=== PATIENT | female | born 1955 | race Caucasian/White ===

== ENCOUNTER 2020-02-21 06:45 | Emergency (ER) | payer BC, SELFPAY ==
[2020-02-21 07:02] VITALS: BP 175/85; PULSE 74; RESP 19; TEMP 37; O2SAT 95; BMI 31.7
--- NOTE | 2020-02-21 08:20 | ED_ITS ---
HPI - General Adult General Chief complaint: Upper Respiratory Symptoms Stated complaint: Fish bone stuck in right upper quad/cough x14 days Time Seen by Provider: 02/21/20 06:50 Source: patient Mode of arrival: Ambulatory Limitations: no limitations History of Present Illness HPI narrative: Patient complains of discomfort in the mid chest/throat due to swallowing a fish bone 2 weeks ago. She felt ago down in try clearing with eating bread. No dyspnea and no drooling. Past 3 nights has noticed high- pitched cough and pain with lying supine. No hemoptysis. No hematemesis. No bloody stools. No trouble breathing otherwise. Tolerating eating and drinking. She does have established ENT that she saw recently for sinus procedures. However fishbone incident occurred after office visit. Blood pressure noted, she did take her blood pressure medication today. She feels anxious Related Data Home Medications Medication Instructions Recorded Confirmed ibuprofen 200 mg PO TID #0 04/26/11 Allergies Allergy/AdvReac Type Severity Reaction Status Date / Time amoxicillin AdvReac Insomnia Verified 02/21/20 07:02 Review of Systems Review of Systems Narrative: GENERAL: Denies chills, fatigue, malaise, fever, sweats. HEENT: Denies sinus pain, ear pain, sore throat, complains of difficulty swallowing, denies dizziness. RESPIRATORY: Denies dyspnea, cough, wheezing, hemoptysis, sputum. CARDIOVASCULAR: Denies chest pain, palpitations, orthopnea, edema, GASTROINTESTINAL: Denies nausea, vomiting, abdominal pain, diarrhea, constipation, melena. : Denies dysuria, frequency, incontinence, hematuria, urinary retention. MUSCULOSKELETAL: denies weakness, joint pain, or bony pain SKIN: Denies rash, skin lesions, or other NEUROLOGIC: Denies weakness, headache, numbness, change in speech, confusion, seizures, incoordination. PSYCHIATRIC: No concerning psychosocial issues. ROS Unobtainable: All systems reviewed & are unremarkable except as noted in HPI and below Patient History Social History Smoking Status: Never smoker Smoking Status: Never smoker alcohol intake frequency: a few times a week Substance Use Type: does not use Exam Narrative Exam Narrative: GENERAL: patient appears stated age. Well-nourished, well- developed patient, in no distress, not toxic HEAD: Atraumatic. Normocephalic. EYES: Pupils equal round and reactive. Extraocular motions intact. No scleral icterus. No injection or drainage. ENT: Nose without bleeding, purulent drainage. Throat without erythema, tonsillar hypertrophy or exudate. Airway patent. NECK: Trachea midline. Non tender CARDIOVASCULAR: Regular rate and rhythm without murmurs, gallops, or rubs. RESPIRATORY: Clear to auscultation. Breath sounds equal bilaterally. No wheezes, rales, or rhonchi. No stridor, speaking full sentences. GASTROINTESTINAL: Abdomen soft, non-tender, nondistended. EXTREMITIES: No edema or joint tenderness. BACK: Nontender without deformity or crepitance. No flank tenderness. NEURO: AOx3. SKIN: No rash or erythema of visible areas PSYCH: Not anxious, is cooperative Initial Vital Signs Initial Vital Signs: Vital Signs Temperature 98.6 F 02/21/20 07:02 Pulse Rate 74 02/21/20 07:02 Respiratory Rate 19 02/21/20 07:02 Blood Pressure 175/85 H 02/21/20 07:02 Pulse Oximetry 95 02/21/20 07:02 Course Orders Ordered: ED Orders 02/21/20 08:22 CT chest wo con Stat Reevaluation(s) Reevaluation #1: Unchanged condition. No acute concerns at this time. Spoke with patient results of CAT scan. She agrees with treatment plan for follow-up with her ENT physician as well as I will give her referral to General surgery and Pulmonary for possible bronchoscopy or EGD. Time: 10:06 Reevaluation #2: Blood pressure improved 159/84. No intervention. Not toxic at discharge. Airway patent and intact. No distress Time: 11:10 Consultations Consultation #1: Spoke with general surgery Dr. Duenas, patient can follow-up in the office for scheduled for EGD Time: 10:06 Consultation #2: Spoke with [facility], Dr. Meehan, will see pt tomorrow at 3 pm his phone number is [phone] Vital Signs Vital signs: Vital Signs - 8 hr 02/21/20 10:20 Pulse Rate 80 Respiratory Rate 16 Blood Pressure 159/84 H Pulse Oximetry 99 Medical Decision Making Imaging Data CT scan - chest: Radiologist's Impression: [address] [address] [address] Scan Report Signed Patient: Cecy Carranza GMR#: [id number] : 5Acct:[id number] Age/Sex: 64 / FDate of Service: 02/21/20 Loc: ED Accession Number: [id number] Procedure: CT chest wo con Ordering Provider: Isiah Edward MD PROCEDURE: CT CHEST WO CON INDICATIONS: Foreign body trachea versus esophageal TECHNIQUE: Noncontrast 5 mm thick sections acquired from the pulmonary apices to the posterior costophrenic angles. 1 mm lung window, 5 mm thick coronal and sagittal and 7 mm axial MIP reformats were then acquired. For radiation dose reduction, the following was used: automated exposure control, adjustment of mA and/or kV according to patient size. COMPARISON: None. FINDINGS: Image quality: Excellent. Lungs and pleura: No acute air space opacities. No pleural effusions or pneumothorax. Central and peripheral airways are patent and normal in caliber. Mediastinum: Heart size is normal. No pericardial effusion. No mediastinal adenopathy by size criteria. Thoracic aorta and central pulmonary arteries are normal in size. Esophagus is normal in caliber. No hiatal hernia. Bones and chest wall: No suspicious bony lesions. No vertebral body compression fractures. No axillary or supraclavicular adenopathy by size criteria. Thyroid gland is unremarkable . Abdomen: Visualized upper abdominal solid organs and bowel loops appear normal in the absence of contrast. IMPRESSION: 1. No visualized foreign body. Lungs are clear. Dictated by: Hafsa Carrasquillo M.D. on 02/21/2020 at 8:38 Approved by: Hafsa Carrasquillo M.D. on 02/21/2020 at 8:41 MDM Narrative Medical decision making narrative: No labs indicated at this time. Trying CT scan imaging for locating foreign body. As well as assessing airway and esophagus. Appropriate for follow-up with either pulmonary/ENT/GI/general surgery for endoscopy. Patient airway patent intact Discharge Plan Departure Patient Disposition: Home Clinical Impression: Foreign body Discharge Date/Time: 02/21/20 11:18 Instructions: DI for Foreign Body, Swallowed-Adult Activity Restrictions/Additional Instructions: Call your ENT surgeon today for office recheck and possible scheduling for scoping of the throat. Call Dr. Duenas office today for possible endoscopy scoping of your esophagus and stomach. Call provided pulmonary office today to schedule for office recheck and possible scheduling of bronchoscopy of the trachea. Return if worse if any questions or concerns or trouble swallowing or breathing. Pulmonary physician Dr. Meehan, will see tomorrow at 3:00 p.m.. Phone number is [phone]. Call today to confirm office time. You may need referral from family physician Prescriptions: No Action ibuprofen 200 MG tablet 200 mg PO TID Qty: 0 RF: 0 Referrals: Wilfredo Monroe MD [Primary Care Provider] - Ariel Duenas MD [Physician] - Adis Meehan [Non-Staff] -
[2020-02-21 10:20] VITALS: BP 159/84; PULSE 80; RESP 16; O2SAT 99
== END 2020-02-21 11:18 | disposition home or self-care (01) ==
PROVIDERS: Emergency Provider Emergency Medicine; PCP Family Medicine
DX: T18.9XXA Foreign body of alimentary tract, part unspecified, initial encounter (principal)
CPT/HCPCS: 71250; 99283; 99284

== ENCOUNTER 2022-10-30 08:03 | Emergency (ER) | payer MEDICARE, SELFPAY ==
--- NOTE | 2022-10-30 08:17 | DI.RAD.S_ITS ---
PROCEDURE: XR CHEST 2V INDICATIONS: cough, SOB TECHNIQUE: 2 views of the chest were acquired. COMPARISON: [facility], CT, CT CHEST WO CON, 02/21/2020, 8:08. FINDINGS: Surgical changes and devices: None. Lungs and pleura: Lungs are clear. No pleural effusions or pneumothorax. Mediastinum: There is some bulging of the right mediastinal contour which correlates with a mildly aneurysmal ascending aorta on the previous chest CT. On the previous chest CT, the aorta measured 4.1 cm . Heart size is normal. Bones and chest wall: No suspicious bony abnormalities. Soft tissues appear unremarkable. IMPRESSION: 1. There is a mild ascending aortic aneurysm on the previous study. It is felt to be the etiology of mild bulging of the right mediastinal contour. 2. No evidence acute pulmonary process. Dictated by: Jose J Patricia M.D. on 10/30/2022 at 8:47 Approved by: Jose J Patricia M.D. on 10/30/2022 at 8:49
[2022-10-30 08:18] VITALS: BP 190/93; PULSE 89; RESP 26; TEMP 37; O2SAT 98; BMI 33.5
--- NOTE | 2022-10-30 08:18 | ED.GENADULT ---
HPI - General Adult General Chief complaint: Shortness of Breath/Dyspnea Stated complaint: coughing,choking and gagging, hard to breath Time Seen by Provider: 10/30/22 08:17 History of Present Illness HPI narrative: 67-year-old female nonsmoker with history of asthma and chronic sinus issues presents with a chief complaint of coughing and wheezing for the past 24 hours. She denies any runny nose or sore throat. She is had no fever or chills. She denies nausea, vomiting or diarrhea. She denies recent travel, history of clot or cancer. She states that she had been trying to use her albuterol inhaler at home but it does not seem to be working, she does not have a chamber with it. Related Data Home Medications Medication Instructions Recorded Confirmed albuterol sulfate 90 mcg/actuation inhalation 10/30/22 aerosol inhaler Previous Rx's Medication Instructions Recorded benzonatate 200 mg capsule 200 mg PO BID PRN cough #20 caps 10/30/22 prednisone 20 mg tablet 20 mg PO DAILY #5 tabs 10/30/22 Allergies Allergy/AdvReac Type Severity Reaction Status Date / Time amoxicillin AdvReac Insomnia Verified 10/30/22 08:21 Review of Systems Review of Systems Narrative: GENERAL: See HPI HEENT: See HPI RESPIRATORY: See HPI CARDIOVASCULAR: Denies chest pain, palpitations, orthopnea, edema, GASTROINTESTINAL: Denies nausea, vomiting, abdominal pain, diarrhea, constipation, melena. : Denies dysuria, frequency, incontinence, hematuria, urinary retention. MUSCULOSKELETAL: denies weakness, joint pain, or bony pain SKIN: Denies rash, skin lesions, or other NEUROLOGIC: Denies weakness, headache, numbness, change in speech, confusion, seizures, incoordination. PSYCHIATRIC: No concerning psychosocial issues. 12 point review of systems is negative except for those stated above Patient History Social History Smoking Status: Never smoker Smoking Status: Never smoker alcohol intake frequency: a few times a week Substance Use Type: does not use Exam Narrative Exam Narrative: GENERAL: [67] year old patient appears stated age. Well-developed patient, in mild distress. Anxious, frequent dry hacking cough HEAD: Atraumatic. Normocephalic. EYES: Pupils equal round and reactive. Extraocular motions intact. No scleral icterus. No injection or drainage. ENT: Nose without bleeding, purulent drainage. Throat without erythema, tonsillar hypertrophy or exudate. Airway patent. Minimal postnasal drip NECK: Trachea midline. Non tender CARDIOVASCULAR: Regular rate and rhythm without murmurs, gallops, or rubs. RESPIRATORY: No significant increased work of breathing or use of accessory muscles, no hypoxemia, expiratory wheeze noted in all causey GASTROINTESTINAL: Abdomen soft, non-tender, nondistended. EXTREMITIES: No edema or joint tenderness. BACK: Nontender without deformity or crepitance. No flank tenderness. NEURO: AOx3. SKIN: No rash or erythema of visible areas Initial Vital Signs Initial Vital Signs: Vital Signs Temperature 98.6 F 10/30/22 08:18 Pulse Rate 89 10/30/22 08:18 Respiratory Rate 26 H 10/30/22 08:18 Blood Pressure 190/93 H 10/30/22 08:18 Pulse Oximetry 98 10/30/22 08:18 Oxygen Delivery Method Room Air 10/30/22 08:18 Course Orders Ordered: ED Orders 10/30/22 08:17 Chest [XR chest 2V] Stat 10/30/22 08:24 Covid-19 + FLU A/B + RSV - PCR Stat Discontinued Medications Albuterol/Ipratropium (Albuterol/Ipratropium 3 Ml Ampul) 3 ml INH NOW ONE Stop: 10/30/22 08:18 Last Admin: 10/30/22 08:22 Dose: 3 ml Documented By: ELAN Albuterol/Ipratropium (Albuterol/Ipratropium 3 Ml Ampul) 3 ml INH NOW ONE Stop: 10/30/22 08:42 Last Admin: 10/30/22 08:44 Dose: 3 ml Documented By: ELAN Vital Signs Vital signs: Vital Signs - 8 hr 10/30/22 08:22 10/30/22 08:18 10/30/22 08:44 Temperature 98.6 F Pulse Rate 78 89 82 Respiratory Rate 18 26 H 18 Blood Pressure 190/93 H Pulse Oximetry 98 98 99 Oxygen Delivery Method Room Air Room Air Room Air Oxygen Flow Rate 0 0 Fraction of Inspired Oxygen 21 21 Medical Decision Making Lab Data Labs: Lab Results 10/30/22 Range/Units 08:24 SARS-CoV-2 (PCR) Negative (Negative) Influenza A (RT-PCR) Flu a negative (NEGATIVE) Influenza B (RT-PCR) Flu b negative (NEGATIVE) RSV (PCR) Negative (Negative) MDM Narrative Medical decision making narrative: [89] year old patient presents with wheezing and cough Multiple etiologies for patient's symptoms considered including, but not limited to: [Asthma exacerbation versus viral upper respiratory infection versus pneumonia versus other] Prior Charts reviewed in our EMR Primary Historian: patient Labs reviewed and interpreted by myself: Imaging reviewed: Chest x-ray notes Treatments: Albuterol with significant improvement Patient's symptoms improved over duration of stay with above-stated therapies. Findings and discharge diagnosis discussed with patient/family followed by verbalization of understanding Return precautions discussed with patient/family whom verbalize understanding of diagnosis and plan Discharge Plan Departure Patient Disposition: Home Clinical Impression: Asthma Instructions: Asthma -- Adult Activity Restrictions/Additional Instructions: *You have been diagnosed with [asthma exacerbation] *What to do: *Please continue to take your regular medications as directed. As we discussed be sure to use the spacer that was given to you by respiratory therapy as it will help the medications work better. Additionally the use of [id number] antihistamines such as Zyrtec or Jolanta will help dry some of the postnasal drainage that is likely contributing to your symptoms [x] New medication prescriptions sent to your pharmacy: [ [facility] in [place]] [ ] New medication written as a paper prescription [ ] No new medications given *Please follow up with your primary care provider in 2-3 days, call for an appointment. Let them know you were seen in the Emergency Department and that we ask that you be seen in follow up. We will electronically transmit a record of today's note if your PCP is in our system *If you do not have a primary care provider please contact the [facility] Resource line at [phone]. They will ask some questions about your medical history and help get you set up with a doctor in the community. *Return to Emergency Department if you should have any new, worsening or concerning symptoms, such as [fever greater than 101 F, shaking chills, worsening pain, persistent vomiting or other bothersome symptoms] Prescriptions: New benzonatate 200 mg capsule 200 mg PO BID PRN (Reason: cough) Qty: 20 0RF prednisone 20 mg tablet 20 mg PO DAILY Qty: 5 0RF Rx Instructions: administer with food or milk No Action albuterol sulfate 90 mcg/actuation HFA aerosol inhaler INHALATION Referrals: Kelly Best PA-C [Primary Care Provider] - Stand Alone Forms: Patient Portal/API
[2022-10-30 08:22] VITALS: PULSE 78; RESP 18; O2SAT 98
[2022-10-30] MEDS: ALBUTEROL/IPRATROPIUM 3 ML AMPUL INH ×2 (08:22→08:44)
--- NOTE | 2022-10-30 08:34 | PC.NURSE ---
Patient reports significant improvement after nebulized breathing treatment. She has some mild expiratory wheezing remaining however it has decreased. Spacer training in progress with respiratory therapy.
[2022-10-30 08:44] VITALS: PULSE 82; RESP 18; O2SAT 99
[2022-10-30 09:15] LABS: COVID-19 CEPHEID 4-PLEX PCR Negative (Negative); Influenza A - CEPHEID Flu A NEGATIVE (NEGATIVE); Influenza B - CEPHEID Flu B NEGATIVE (NEGATIVE); Respiratory Syncytial Virus Negative (Negative)
[2022-10-30 09:48] VITALS: PULSE 87; RESP 16; O2SAT 99
--- NOTE | 2022-10-30 09:48 | PC.NURSE ---
Patient accidentally left without discharge instructions. Is coming back to get them.
== END 2022-10-30 09:49 | disposition home or self-care (01) ==
PROVIDERS: Emergency Provider Emergency Medicine; PCP Physician Assistant
DX: J45.909 Unspecified asthma, uncomplicated (principal); R06.02 Shortness of breath; Z20.822 Contact with and (suspected) exposure to COVID-19
CPT/HCPCS: 0241U; 71046; 94640; 99283

== ENCOUNTER 2022-11-28 09:08 | Emergency (ER) | payer MEDICARE, SELFPAY ==
[2022-11-28] VITALS (20 sets, daily range): BP systolic 116–181; BP diastolic 67–86; PULSE 68–105; RESP 13–23; TEMP 36.8; O2SAT 93–100; BMI 33.5
--- NOTE | 2022-11-28 09:18 | DI.RAD.S_ITS ---
PROCEDURE: XR CHEST 1V INDICATIONS: Shortness of breath TECHNIQUE: One view of the chest was acquired. COMPARISON: [facility], , XR CHEST 2V, 10/30/2022, 8:19. FINDINGS: Surgical changes and devices: Overlying monitoring wires. Lungs and pleura: Lungs are clear. No pleural effusions or pneumothorax. Mediastinum: The ascending aorta is tortuous and mildly ectatic as seen previously. There is subtle increase in upper mediastinal soft tissue, though this may be largely in part due to AP rather than PA projection. The heart size is normal. No central vascular congestion. Bones and chest wall: No suspicious bony lesions. Overlying soft tissues appear unremarkable. IMPRESSION: 1. Subtle increase in degree of mediastinal soft tissue is most likely secondary to change in technique. Consider a PA chest for direct comparison to the prior study. If this finding persists, chest CT with contrast may be useful. 2. Otherwise, no acute cardiopulmonary disease. Dictated by: Cele Carvalho M.D. on 11/28/2022 at 8:55 Approved by: Cele Carvalho M.D. on 11/28/2022 at 8:58
[2022-11-28 10:04] LABS: Add Manual Diff / Slide Review NO; Basophils Absolute Auto 0 /uL (0-100); Basophils Percent Auto 0.6 % (0-2); Eosinophils Absolute Auto 700 /uL (0-450); Eosinophils Percent Auto 9.9 % (2-4); Hematocrit 39.3 % (36-46); Hemoglobin 13.6 g/dL (12.0-16.0); Lymphocytes Absolute Auto 1600 /uL (1100-4500); Lymphocytes Percent Auto 23.6 % (25-40); Mean Corpuscular HGB Conc 34.5 % (30-36); Mean Corpuscular Hemoglobin 29.6 PG (26-34); Mean Corpuscular Volume 85.6 fL (80-100); Monocytes Absolute Auto 500 /uL (0-900); Monocytes Percent Auto 6.8 % (3-14); Neutrophils Absolute Auto 4100 /uL (1500-7000); Neutrophils Percent Auto 59.1 % (50-75); Platelet Count 243 X10^3/uL (150-400); Red Blood Cell Count 4.59 X10^6/uL (4.0-5.2); Red Cell Distribution Width 13.7 % (11.6-14.8)
[2022-11-28 10:12] LABS: Prothrombin Time 11.3 SECONDS (10.1-12.7)
--- NOTE | 2022-11-28 10:14 | ED.CHESTPAIN ---
HPI - Chest Pain General Chief Complaint: Shortness of Breath/Dyspnea Stated Complaint: hard time breathing and swallowing Time Seen by Provider: 11/28/22 09:14 Source: patient Mode of arrival: Ambulatory Limitations: no limitations History of Present Illness HPI narrative: 67-year-old female nonsmoker with history of seasonal allergies and asthma presents for evaluation of hard time breathing in the morning for each of the past few days. She has some chest pressure that seems to be associated with taking deep breath but denies any exertional component. She denies any dizziness or lightheadedness. She denies radiation of her discomfort. She denies exercise intolerance. She denies recent travel, history of blood clot or lower extremity pain, swelling or redness. She is had some runny nose, nasal congestion and had been told to use breathing treatments and allergy medications which has not been helpful Related Data Home Medications Medication Instructions Recorded Confirmed albuterol sulfate 90 mcg/actuation inhalation 10/30/22 aerosol inhaler Previous Rx's Medication Instructions Recorded benzonatate 200 mg capsule 200 mg PO BID PRN cough #20 caps 10/30/22 prednisone 20 mg tablet 20 mg PO DAILY #5 tabs 10/30/22 doxycycline hyclate 100 mg tablet 100 mg PO BID #20 tabs 11/28/22 prednisone 10 mg tablet See Rx Instructions .Route 11/28/22 .COMPLEX #30 tabs Allergies Allergy/AdvReac Type Severity Reaction Status Date / Time amoxicillin AdvReac Insomnia Verified 11/28/22 09:18 Review of Systems Review of Systems Narrative: GENERAL: Denies chills, fatigue, malaise, fever, sweats. HEENT: Denies sinus pain, ear pain, sore throat, difficulty swallowing, dizziness. RESPIRATORY: See HPI CARDIOVASCULAR: See HPI GASTROINTESTINAL: Denies nausea, vomiting, abdominal pain, diarrhea, constipation, melena. : Denies dysuria, frequency, incontinence, hematuria, urinary retention. MUSCULOSKELETAL: denies weakness, joint pain, or bony pain SKIN: Denies rash, skin lesions, or other NEUROLOGIC: Denies weakness, headache, numbness, change in speech, confusion, seizures, incoordination. PSYCHIATRIC: No concerning psychosocial issues. 12 point review of systems is negative except for those stated above Patient History Social History Smoking Status: Never smoker Smoking Status: Never smoker alcohol intake frequency: 0-2 drinks per day Substance Use Type: does not use Exam Narrative Exam Narrative: GENERAL: [67] year old patient appears stated age. Well-developed patient, in mild distress. Perhaps a bit anxious HEAD: Atraumatic. Normocephalic. EYES: Pupils equal round and reactive. Extraocular motions intact. No scleral icterus. No injection or drainage. ENT: Nose without bleeding, purulent drainage. Throat without erythema, tonsillar hypertrophy or exudate. Airway patent. NECK: Trachea midline. Non tender CARDIOVASCULAR: Regular rate and rhythm without murmurs, gallops, or rubs. RESPIRATORY: Clear to auscultation. Breath sounds equal bilaterally. No wheezes, rales, or rhonchi. GASTROINTESTINAL: Abdomen soft, non-tender, nondistended. EXTREMITIES: No edema or joint tenderness. BACK: Nontender without deformity or crepitance. No flank tenderness. NEURO: AOx3. SKIN: No rash or erythema of visible areas Initial Vital Signs Initial Vital Signs: Vital Signs Temperature 98.3 F 11/28/22 09:09 Pulse Rate 82 11/28/22 09:09 Respiratory Rate 17 11/28/22 09:09 Blood Pressure 181/86 H 11/28/22 09:09 Pulse Oximetry 98 11/28/22 09:09 Oxygen Delivery Method Room Air 11/28/22 09:09 Course Orders Ordered: Discontinued Medications Diphtheria/Tetanus/Acell Pertussis (Tet,Diph,Pertuss(Acell),Vac/Pf 0.5 Ml Syringe) 0.5 ml IM .ONCE ONE Stop: 11/28/22 12:44 Last Admin: 11/28/22 12:50 Dose: 0.5 ml Documented By: CHARMAINE Vital Signs Vital signs: Vital Signs - 8 hr 11/28/22 09:09 11/28/22 09:14 11/28/22 09:15 Temperature 98.3 F Pulse Rate 82 Respiratory Rate 17 Blood Pressure 181/86 H 181/86 H Pulse Oximetry 98 93 Oxygen Delivery Method Room Air 11/28/22 09:15 11/28/22 09:30 11/28/22 09:30 Temperature Pulse Rate 83 75 Respiratory Rate 20 Blood Pressure 173/77 H Pulse Oximetry 98 98 Oxygen Delivery Method 11/28/22 09:56 11/28/22 09:56 11/28/22 10:00 Temperature Pulse Rate 70 Respiratory Rate 14 Blood Pressure 146/70 H 138/67 Pulse Oximetry 99 Oxygen Delivery Method 11/28/22 10:00 11/28/22 10:15 11/28/22 10:15 Temperature Pulse Rate 69 68 Respiratory Rate 13 15 Blood Pressure 141/72 H Pulse Oximetry 100 100 Oxygen Delivery Method MDM - Chest Pain Lab Data 11/28/22 09:57 11/28/22 09:57 Labs: Lab Results 11/28/22 11/28/22 11/28/22 Range/Units 09:57 09:57 09:57 WBC 7.0 (4.5-11.0) X10^3/uL RBC 4.59 (4.0-5.2) X10^6/uL Hgb 13.6 (12.0-16.0) g/dL Hct 39.3 (36-46) % MCV 85.6 (80-100) fL MCH 29.6 (26-34) PG MCHC 34.5 (30-36) % RDW 13.7 (11.6-14.8) % Plt Count 243 (150-400) X10^3/uL Neut % (Auto) 59.1 (50-75) % Lymph % (Auto) 23.6 L (25-40) % Burke % (Auto) 6.8 (3-14) % Eos % (Auto) 9.9 H (2-4) % Baso % (Auto) 0.6 (0-2) % Neut # (Auto) 4100 (1890-8872) /uL Lymph # (Auto) 1600 (6901-2318) /uL Burke # (Auto) 500 (0-900) /uL Eos # (Auto) 700 H (0-450) /uL Baso # (Auto) 0 (0-100) /uL PT 11.3 (10.1-12.7) SECONDS INR 1.0 (0.9-1.3) D-Dimer (<500) ng/ml Sodium 138 (137-145) mmol/L Potassium 4.3 (3.4-5.1) mmol/L Chloride 106 (98-107) mmol/L Carbon Dioxide 25 (22-32) mmol/L BUN 12 (7-17) mg/dL Creatinine 0.80 (0.52-1.04) mg/dL Estimated GFR > 60 (>60) mL/min BUN/Creatinine Ratio 15.0 (6-22) Glucose 159 H (80-110) mg/dL Lactate (0.7-2.1) mmol/L Calcium 9.2 (8.4-10.2) mg/dL Total Bilirubin 0.7 (0.2-1.3) mg/dL AST 19 (14-36) IU/L ALT 19 (<35) IU/L Alkaline Phosphatase 80 (38-126) U/L Troponin I < 0.012 (0.01-0.034) ng/mL NT-Pro-B Natriuret Pep 49 (<125) pg/mL Total Protein 7.0 (6.3-8.2) g/dL Albumin 4.0 (3.5-5.0) g/dL Globulin 3.0 (1.7-4.1) g/dL Albumin/Globulin Ratio 1.3 (1.0-2.8) Procalcitonin (<0.5) ng/mL Chlamy pneumoniae PCR (Not Detect) Adenovirus (PCR) (Not Detect) B. pertussis DNA (PCR) (Not Detecte) B.parapertussis DNA PCR (Not Detecte) Coronavirus OC43 (PCR) (Not Detect) Coronavirus HKU1 (PCR) (Not Detect) Coronavirus 229E (PCR) (Not Detect) SARS-CoV-2 (PCR) (Not Detecte) Coronavirus NL63 (PCR) (Not Detect) Human Metapneumovir PCR (Not Detect) Influenza Type A (PCR) (Not Detect) Influenza Type B (PCR) (Not Detect) M. pneumoniae (PCR) (Not Detect) Parainfluenza 1 (PCR) (Not Detect) Parainfluenza 2 (PCR) (Not Detect) Parainfluenza 3 (PCR) (Not Detect) Parainfluenza 4 (PCR) (Not Detect) RSV (PCR) (Not Detect) Entero/Rhino (PCR) (Not Detect) 11/28/22 11/28/22 11/28/22 Range/Units 09:57 09:57 09:57 WBC (4.5-11.0) X10^3/uL RBC (4.0-5.2) X10^6/uL Hgb (12.0-16.0) g/dL Hct (36-46) % MCV (80-100) fL MCH (26-34) PG MCHC (30-36) % RDW (11.6-14.8) % Plt Count (150-400) X10^3/uL Neut % (Auto) (50-75) % Lymph % (Auto) (25-40) % Burke % (Auto) (3-14) % Eos % (Auto) (2-4) % Baso % (Auto) (0-2) % Neut # (Auto) (0030-1877) /uL Lymph # (Auto) (9832-2747) /uL Burke # (Auto) (0-900) /uL Eos # (Auto) (0-450) /uL Baso # (Auto) (0-100) /uL PT (10.1-12.7) SECONDS INR (0.9-1.3) D-Dimer 413 (<500) ng/ml Sodium (137-145) mmol/L Potassium (3.4-5.1) mmol/L Chloride (98-107) mmol/L Carbon Dioxide (22-32) mmol/L BUN (7-17) mg/dL Creatinine (0.52-1.04) mg/dL Estimated GFR (>60) mL/min BUN/Creatinine Ratio (6-22) Glucose (80-110) mg/dL Lactate 1.8 (0.7-2.1) mmol/L Calcium (8.4-10.2) mg/dL Total Bilirubin (0.2-1.3) mg/dL AST (14-36) IU/L ALT (<35) IU/L Alkaline Phosphatase (38-126) U/L Troponin I (0.01-0.034) ng/mL NT-Pro-B Natriuret Pep (<125) pg/mL Total Protein (6.3-8.2) g/dL Albumin (3.5-5.0) g/dL Globulin (1.7-4.1) g/dL Albumin/Globulin Ratio (1.0-2.8) Procalcitonin 0.04 (<0.5) ng/mL Chlamy pneumoniae PCR (Not Detect) Adenovirus (PCR) (Not Detect) B. pertussis DNA (PCR) (Not Detecte) B.parapertussis DNA PCR (Not Detecte) Coronavirus OC43 (PCR) (Not Detect) Coronavirus HKU1 (PCR) (Not Detect) Coronavirus 229E (PCR) (Not Detect) SARS-CoV-2 (PCR) (Not Detecte) Coronavirus NL63 (PCR) (Not Detect) Human Metapneumovir PCR (Not Detect) Influenza Type A (PCR) (Not Detect) Influenza Type B (PCR) (Not Detect) M. pneumoniae (PCR) (Not Detect) Parainfluenza 1 (PCR) (Not Detect) Parainfluenza 2 (PCR) (Not Detect) Parainfluenza 3 (PCR) (Not Detect) Parainfluenza 4 (PCR) (Not Detect) RSV (PCR) (Not Detect) Entero/Rhino (PCR) (Not Detect) 11/28/22 Range/Units 13:00 WBC (4.5-11.0) X10^3/uL RBC (4.0-5.2) X10^6/uL Hgb (12.0-16.0) g/dL Hct (36-46) % MCV (80-100) fL MCH (26-34) PG MCHC (30-36) % RDW (11.6-14.8) % Plt Count (150-400) X10^3/uL Neut % (Auto) (50-75) % Lymph % (Auto) (25-40) % Burke % (Auto) (3-14) % Eos % (Auto) (2-4) % Baso % (Auto) (0-2) % Neut # (Auto) (3702-8421) /uL Lymph # (Auto) (3379-4567) /uL Burke # (Auto) (0-900) /uL Eos # (Auto) (0-450) /uL Baso # (Auto) (0-100) /uL PT (10.1-12.7) SECONDS INR (0.9-1.3) D-Dimer (<500) ng/ml Sodium (137-145) mmol/L Potassium (3.4-5.1) mmol/L Chloride (98-107) mmol/L Carbon Dioxide (22-32) mmol/L BUN (7-17) mg/dL Creatinine (0.52-1.04) mg/dL Estimated GFR (>60) mL/min BUN/Creatinine Ratio (6-22) Glucose (80-110) mg/dL Lactate (0.7-2.1) mmol/L Calcium (8.4-10.2) mg/dL Total Bilirubin (0.2-1.3) mg/dL AST (14-36) IU/L ALT (<35) IU/L Alkaline Phosphatase (38-126) U/L Troponin I (0.01-0.034) ng/mL NT-Pro-B Natriuret Pep (<125) pg/mL Total Protein (6.3-8.2) g/dL Albumin (3.5-5.0) g/dL Globulin (1.7-4.1) g/dL Albumin/Globulin Ratio (1.0-2.8) Procalcitonin (<0.5) ng/mL Chlamy pneumoniae PCR Not detected (Not Detect) Adenovirus (PCR) Not detected (Not Detect) B. pertussis DNA (PCR) Not detected (Not Detecte) B.parapertussis DNA PCR Not detected (Not Detecte) Coronavirus OC43 (PCR) Not detected (Not Detect) Coronavirus HKU1 (PCR) Not detected (Not Detect) Coronavirus 229E (PCR) Not detected (Not Detect) SARS-CoV-2 (PCR) Not detected (Not Detecte) Coronavirus NL63 (PCR) Not detected (Not Detect) Human Metapneumovir PCR Not detected (Not Detect) Influenza Type A (PCR) Not detected (Not Detect) Influenza Type B (PCR) Not detected (Not Detect) M. pneumoniae (PCR) Not detected (Not Detect) Parainfluenza 1 (PCR) Not detected (Not Detect) Parainfluenza 2 (PCR) Not detected (Not Detect) Parainfluenza 3 (PCR) Not detected (Not Detect) Parainfluenza 4 (PCR) Not detected (Not Detect) RSV (PCR) Not detected (Not Detect) Entero/Rhino (PCR) Not detected (Not Detect) Urine Dip Bedside Urine Glucose Negative Bedside Urine Bilirubin - Negative Bedside Urine Ketone - Negative Urine Specific [place] 1.010 Bedside Urine Occult Blood - Negative Bedside Urine pH 6.0 Bedside Urine Protein - Negative Bedside Urine Urobilinogen - Negative Bedside Urine Nitrite - Negative Bedside Urine Leukocytes - Negative Esterase [facility] Medical decision making narrative: [age] year old patient presents with shortness of breath Multiple etiologies for patient's symptoms considered including, but not limited to: [Pneumonia, CHF, cardiac ischemia versus other] Prior Charts reviewed in our EMR Primary Historian: patient Labs reviewed and interpreted by myself: No leukocytosis or left shift, troponin and BNP within normal, D-dimer below age corrected cutoff Imaging reviewed: Chest x-ray without significant findings, chest CT suggest the possibility of atypical pneumonia or viral etiology Patient without any significant work of breathing Findings and discharge diagnosis discussed with patient/family followed by verbalization of understanding Return precautions discussed with patient/family whom verbalize understanding of diagnosis and plan Discharge Plan Departure Patient Disposition: Home Clinical Impression: Atypical pneumonia Instructions: DI for Atypical Pneumonia Activity Restrictions/Additional Instructions: *You have been diagnosed with [atypical pneumonia] *What to do: *Please continue to take your regular medications as directed. [x ] New medication prescriptions sent to your pharmacy: [ [facility] in [place]] [ ] New medication written as a paper prescription [ ] No new medications given *Please follow up with your primary care provider in 2-3 days, call for an appointment. Let them know you were seen in the Emergency Department and that we ask that you be seen in follow up. We will electronically transmit a record of today's note if your PCP is in our system *If you do not have a primary care provider please contact the [facility] Resource line at [phone]. They will ask some questions about your medical history and help get you set up with a doctor in the community. *Return to Emergency Department if you should have any new, worsening or concerning symptoms, such as [fever greater than 101 F, shaking chills, worsening pain, persistent vomiting or other bothersome symptoms] Prescriptions: New doxycycline hyclate 100 mg tablet 100 mg PO BID Qty: 20 0RF prednisone 10 mg tablet See Rx Instructions .ROUTE .COMPLEX Qty: 30 0RF Rx Instructions: Day 1,2,3: 40mg PO Daily Day 4,5,6: 30mg PO Daily Day 7,8,9: 20mg PO Daily Day 10,11,12: 10mg PO Daily #30 No Action albuterol sulfate 90 mcg/actuation HFA aerosol inhaler INHALATION benzonatate 200 mg capsule 200 mg PO BID PRN (Reason: cough) Qty: 20 0RF prednisone 20 mg tablet 20 mg PO DAILY Qty: 5 0RF Rx Instructions: administer with food or milk Referrals: Kelly Best PA-C [Primary Care Provider] - Stand Alone Forms: Patient Portal/API
[2022-11-28 10:18] LABS: Alanine Aminotransferase 19 IU/L (<35); Albumin Globulin Ratio 1.3 (1.0-2.8); Alkaline Phosphatase 80 U/L (38-126); Aspartate Aminotransferase 19 IU/L (14-36); Bilirubin Total 0.7 mg/dL (0.2-1.3); Blood Urea Nitrogen 12 mg/dL (7-17); Calcium 9.2 mg/dL (8.4-10.2); Carbon Dioxide 25 mmol/L (22-32); Chloride 106 mmol/L (98-107); Estimated Glomerular Filt Rate > 60 mL/min (>60); Glucose 159 mg/dL (80-110); HEMOLYSIS < 15 (0-50); Lactate (Lactic Acid) 1.8 mmol/L (0.7-2.1); Potassium 4.3 mmol/L (3.4-5.1); Sodium 138 mmol/L (137-145)
[2022-11-28 10:20] LABS: D Dimer 413 ng/ml (<500)
[2022-11-28 10:30] LABS: NT-proBNP (BNP-Adult 18+) 49 pg/mL (<125); Troponin I < 0.012 ng/mL (0.01-0.034)
[2022-11-28 10:35] LABS: Procalcitonin 0.04 ng/mL (<0.5)
--- NOTE | 2022-11-28 10:39 | DI.CT.S_ITS ---
PROCEDURE: CT CHEST W CON INDICATIONS: SOB, chest pain, cough TECHNIQUE: After the administration of intravenous contrast, 5 mm thick sections acquired from the pulmonary apices to the posterior costophrenic angles. 1 mm axial lung, 5 mm thick coronal and sagittal reformats and 7 mm axial MIP were acquired. For radiation dose reduction, the following was used: automated exposure control, adjustment of mA and/or kV according to patient size. COMPARISON: [facility], CT, CT CHEST WO CON, 02/21/2020, 8:08. FINDINGS: Image quality: Excellent. Lungs and pleura: Small calcified right middle lobe granuloma. No suspicious nodules, airspace opacities or consolidations. There is mild bilateral central bronchial wall thickening without bronchiectasis. The trachea is normal. No pleural effusion or pleural plaquing. Mediastinum: The ascending thoracic aorta is ectatic measuring 4.2 cm in greatest AP diameter. Main pulmonary outflow tract is enlarged measuring 3.7 cm in diameter. The heart size is normal. No pericardial effusion. Minimally prominent, but benign-appearing [place] carinal lymph nodes. No bulky mediastinal adenopathy. No anterior mediastinal mass. Normal esophagus without hiatal hernia. Bones and chest wall: The thyroid gland is normal size. There are no masses in the visible lower neck. Normal size supraclavicular lymph nodes are present. No axillary adenopathy. No chest wall lesions. Intact osseous structures. Abdomen: Visualized upper abdomen demonstrates mild hepatic steatosis and partially imaged cholelithiasis. Visible organs are otherwise normal. IMPRESSION: 1. Stable aorta ectasia and pulmonary artery outflow tract enlargement. There may be a primary pulmonary artery hypertension, though pulmonic stenosis may also be considered. 2. There are changes of mild bilateral bronchitis without airspace disease. 3. Mild hepatic steatosis and cholelithiasis. Dictated by: Cele Carvalho M.D. on 11/28/2022 at 11:09 Approved by: Cele Carvalho M.D. on 11/28/2022 at 11:15
[2022-11-28] MEDS: TET,DIPH,PERTUSS(ACELL),VAC/PF 0.5 ML SYRINGE IM (12:50)
[2022-11-28 14:12] LABS: Adenovirus Not Detected (Not Detect); B. parapertussis Not Detected (Not Detecte); Bordetella pertussis Not Detected (Not Detecte); Chlamydophila pneumoniae Not Detected (Not Detect); Coronavirus 229E Not Detected (Not Detect); Coronavirus HKU1 Not Detected (Not Detect); Coronavirus NL 63 Not Detected (Not Detect); Coronavirus OC43 Not Detected (Not Detect); Human Metapneumovirus Not Detected (Not Detect); Human Rhinovirus/Enterovirus Not Detected (Not Detect); Influenza A Not Detected (Not Detect); Influenza B Not Detected (Not Detect); Mycoplasma pneumoniae Not Detected (Not Detect); Parainfluenza Virus 1 Not Detected (Not Detect); Parainfluenza Virus 2 Not Detected (Not Detect); Parainfluenza Virus 3 Not Detected (Not Detect); Parainfluenza Virus 4 Not Detected (Not Detect); Respiratory Syncytial Virus Not Detected (Not Detect); SARS- CoV-2 Not Detected (Not Detecte)
== END 2022-11-28 13:10 | disposition home or self-care (01) ==
PROVIDERS: Emergency Provider Emergency Medicine; PCP Physician Assistant
DX: J18.9 Pneumonia, unspecified organism (principal); Z23 Encounter for immunization; R06.02 Shortness of breath
CPT/HCPCS: 36415; 71045; 71260; 80053; 81003; 83605; 83880; 84145; 84484; 85025; 85379; 85610; 87633; 90471; 93005; 93010; 99284; 90715; Q9967

== ENCOUNTER → 2023-01-20 12:51 | Outpatient (CLI) | payer MEDICARE, SELFPAY ==
--- NOTE | 2023-01-20 12:53 | DI.RAD.S_ITS ---
PROCEDURE: XR CHEST 2V INDICATIONS: Cough TECHNIQUE: 2 views of the chest were acquired. COMPARISON: [facility], CR, XR CHEST 1V, 11/28/2022, 9:28. FINDINGS: Surgical changes and devices: None. Lungs and pleura: There is subtle left apical airspace opacities. Mediastinum: The ascending thoracic aorta is prominent, as before. Heart size is normal. Bones and chest wall: No suspicious bony abnormalities. Soft tissues appear unremarkable. IMPRESSION: 1. Subtle left apical airspace opacities. Short interval follow-up recommended to ensure resolution. 2. Ectasia of the ascending thoracic aorta best characterized on the CT dated February 21, 2020. Consider annual sonographic surveillance. Dictated by: Kelly Lawrence M.D. on 01/20/2023 at 16:39 Approved by: Kelly Lawrence M.D. on 01/20/2023 at 16:39
== END ==
PROVIDERS: PCP Physician Assistant; Referring Provider Nurse Practitioner Family; Visit Provider Nurse Practitioner Family
DX: I77.810 Thoracic aortic ectasia (principal); R05.9 Cough, unspecified
CPT/HCPCS: 71046

== ENCOUNTER → 2023-02-03 14:48 | Outpatient (CLI) | payer MEDICARE, SELFPAY ==
--- NOTE | 2023-02-03 14:56 | DI.RAD.S_ITS ---
PROCEDURE: XR CHEST 2V INDICATIONS: Chest congestion TECHNIQUE: 2 views of the chest were acquired. COMPARISON: [facility], CR, XR CHEST 2V, 01/20/2023, 12:51. [facility], CR, XR CHEST 1V, 11/28/2022, 9:28. FINDINGS: Surgical changes and devices: None. Lungs and pleura: Streaky opacities present at the left lung base. No pleural effusion or pneumothorax. Mediastinum: Cardiac silhouette is within normal limits for size. Mediastinal and hilar contours appear similar to before. Bones and chest wall: No suspicious bony abnormalities. Soft tissues appear unremarkable. IMPRESSION: Left basilar opacities are present likely atelectasis or scarring, but aspiration or pneumonia difficult to exclude. Dictated by: Gerhard Mkcinley M.D. on 02/03/2023 at 18:23 Approved by: Gerhard Mckinley M.D. on 02/03/2023 at 18:27
[2023-02-03 15:31] LABS: Influenza A - CEPHEID Flu A NEGATIVE (NEGATIVE); Influenza B - CEPHEID Flu B NEGATIVE (NEGATIVE); Respiratory Syncytial Virus Negative (Negative)
[2023-02-03 15:38] LABS: COVID-19 CEPHEID 4-PLEX PCR Negative (Negative)
== END ==
PROVIDERS: PCP Physician Assistant; Referring Provider Nurse Practitioner Family; Visit Provider Nurse Practitioner Family
DX: J06.9 Acute upper respiratory infection, unspecified (principal); R09.89 Other specified symptoms and signs involving the circulatory and respiratory systems
CPT/HCPCS: 0241U; 71046

== ENCOUNTER → 2023-03-09 13:58 | Outpatient (CLI) | payer MEDICARE, SELFPAY ==
[2023-03-09 14:38] LABS: Add Manual Diff / Slide Review NO; Basophils Absolute Auto 0 /uL (0-100); Basophils Percent Auto 0.5 % (0-2); Eosinophils Absolute Auto 800 /uL (0-450); Eosinophils Percent Auto 9.5 % (2-4); Hematocrit 39.7 % (36-46); Hemoglobin 13.6 g/dL (12.0-16.0); Lymphocytes Absolute Auto 1900 /uL (1100-4500); Lymphocytes Percent Auto 24.4 % (25-40); Mean Corpuscular HGB Conc 34.4 % (30-36); Mean Corpuscular Hemoglobin 28.9 PG (26-34); Monocytes Absolute Auto 600 /uL (0-900); Monocytes Percent Auto 7.7 % (3-14); Neutrophils Absolute Auto 4600 /uL (1500-7000); Neutrophils Percent Auto 57.9 % (50-75); Platelet Count 276 X10^3/uL (150-400); Red Blood Cell Count 4.72 X10^6/uL (4.0-5.2); Red Cell Distribution Width 13.4 % (11.6-14.8); White Blood Cell Count 7.9 X10^3/uL (4.5-11.0)
[2023-03-12 08:41] LABS: Alder IgE <0.10 kU/L (Class 0); Alternaria alternata IgE <0.10 kU/L (Class 0); Aspergillus fumigatus IgE <0.10 kU/L (Class 0); Box Elder IgE <0.10 kU/L (Class 0); Cat Dander IgE <0.10 kU/L (Class 0); Cladosporium herbarum IgE <0.10 kU/L (Class 0); Cockroach IgE <0.10 kU/L (Class 0); Cottonwood IgE <0.10 kU/L (Class 0); D farinae IgE <0.10 kU/L (Class 0); D pteronyssinus IgE <0.10 kU/L (Class 0); Dog Dander IgE <0.10 kU/L (Class 0); Elm Tree IgE <0.10 kU/L (Class 0); Immunoglobulin E 34 IU/mL (6-495); Mountain Cedar IgE <0.10 kU/L (Class 0); Mouse Urine Proteins IgE <0.10 kU/L (Class 0); Nettle IgE <0.10 kU/L (Class 0); Oak Tree IgE <0.10 kU/L (Class 0); Penicillium chrysogen IgE <0.10 kU/L (Class 0); Pigweed, Common IgE <0.10 kU/L (Class 0); Ragweed, Short <0.10 kU/L (Class 0); Sheep Sorrel IgE <0.10 kU/L (Class 0); Silver Birch IgE <0.10 kU/L (Class 0); Timothy Grass IgE <0.10 kU/L (Class 0); Walnut Allery IgE < 0.10 kU/L (Class 0); White ash IgE <0.10 kU/L (Class 0)
== END ==
PROVIDERS: Referring Provider Internal Medicine Critical Care Medicine; Visit Provider Internal Medicine Critical Care Medicine
DX: R09.89 Other specified symptoms and signs involving the circulatory and respiratory systems (principal)
CPT/HCPCS: 36415; 82785; 85025; 86003

== ENCOUNTER 2023-03-14 13:47 | Emergency (ER) | payer MEDICARE, SELFPAY ==
[2023-03-14 13:49] VITALS: BP 166/75; PULSE 87; RESP 20; TEMP 36.6; O2SAT 98; BMI 33.5
--- NOTE | 2023-03-14 13:57 | DI.RAD.S_ITS ---
PROCEDURE: XR CHEST 2V INDICATIONS: cough x 2 weeks TECHNIQUE: 2 views of the chest were acquired. COMPARISON: [facility], CR, XR CHEST 2V, 02/03/2023, 15:08. FINDINGS: Surgical changes and devices: None. Lungs and pleura: Lungs are clear. No pleural effusions or pneumothorax. Mediastinum: Mediastinal contours are normal. Heart size is normal. Bones and chest wall: No suspicious bony abnormalities. Soft tissues appear unremarkable. IMPRESSION: No acute cardiopulmonary abnormality is seen. Approved by: Obdulio Pace M.D. on 03/14/2023 at 14:37
--- NOTE | 2023-03-14 14:20 | ED_ITS ---
HPI - URI/Sore Throat General Chief Complaint: Upper Respiratory Symptoms Stated Complaint: congested, cough, SOB Time Seen by Provider: 03/14/23 13:58 Source: patient Mode of arrival: Ambulatory History of Present Illness HPI Narrative: Patient is a 67-year-old female history of asthma presenting today with chronic cough. She reports that for months throughout the summer she is been coughing throughout the night especially while lying flat. She says that she is ?walking pneumonia ?handful of times. She denies any fever or chills. Her cough has not gotten any worse. She has minimal shortness of breath with exertion. However she reports increased use of her albuterol to every 2-3 hours. She has no chest pain. Her lower extremities swollen to me however he reports that they are always swollen possibly a little more than usual. She has been to the walk-in clinic twice this summer once last month she would full workup in the ED 11/28/2022. Related Data Home Medications Medication Instructions Recorded Confirmed ipratropium bromide 42 mcg (0.06 intranasal 01/20/23 03/09/23 %) nasal spray lisinopril 20 mg tablet 20 mg PO DAILY 01/20/23 03/09/23 omeprazole magnesium 10 mg oral 10 mg PO DAILY 01/20/23 03/09/23 suspension,delayed release (Prilosec) Previous Rx's Medication Instructions Recorded albuterol sulfate 90 mcg/actuation 2 puff inhalation Q6H PRN 02/03/23 aerosol inhaler shortness of breath or wheezing #6.7 grams ipratropium bromide 21 mcg (0.03 2 spray intranasal BID #30 mL 03/09/23 %) nasal spray prednisone 20 mg tablet 40 mg PO DAILY #10 tabs 03/14/23 Allergies Allergy/AdvReac Type Severity Reaction Status Date / Time amoxicillin AdvReac Insomnia Verified 03/09/23 13:04 Review of Systems Review of Systems ROS Unobtainable: All systems reviewed & are unremarkable except as noted in HPI and below Patient History Surgical History H/O sinus surgery Social History Smoking Status: Never smoker Smoking Status: Never smoker alcohol intake frequency: 0-2 drinks per day Substance Use Type: does not use Exam Initial Vital Signs Initial Vital Signs: Vital Signs Temperature 98 F 03/14/23 13:49 Pulse Rate 87 03/14/23 13:49 Respiratory Rate 20 03/14/23 13:49 Blood Pressure 166/75 H 03/14/23 13:49 Pulse Oximetry 98 03/14/23 13:49 Oxygen Delivery Method Room Air 03/14/23 13:49 GENERAL: Alert 67-year-old female and in no acute distress. HEENT: Head atraumatic,EOMI, pupils reactive, face symmetric, moist mucous membranes CARDIOVASCULAR: Regular rate and rhythm without murmurs, rubs or gallops. RESPIRATORY: Breath sounds equal bilaterally, no wheezes rales or rhonchi. Speaks in full sentences no significant dyspnea ABDOMEN: Soft, nontender. Normoactive bowel sounds all 4 quadrants. No gua rding or rebound. EXTREMITIES: Normal range of motion, no clubbing or edema. Neurovascularly intact NEUROLOGICAL: Alert and oriented x4. SKIN: Warm, dry, no laceration, no petechiae, no rashes or lesions. Course Orders Ordered: ED Orders 03/14/23 13:57 Chest [XR chest 2V] Stat 03/14/23 14:00 Covid-19 + FLU A/B + RSV - PCR Stat Discontinued Medications Albuterol/Ipratropium (Albuterol/Ipratropium 3 Ml Ampul) 3 ml INH NOW ONE Stop: 03/14/23 14:31 Last Admin: 03/14/23 14:44 Dose: 3 ml Documented By: THUAN Vital Signs Vital signs: Vital Signs - 8 hr 03/14/23 13:49 03/14/23 14:44 03/14/23 15:56 Temperature 98 F Pulse Rate 87 82 91 H Respiratory Rate 20 18 16 Blood Pressure 166/75 H 165/83 H Pulse Oximetry 98 98 98 Oxygen Delivery Method Room Air Room Air Room Air Oxygen Flow Rate 0 Fraction of Inspired Oxygen 21 MDM - URI/Sore Throat Lab Data Labs: Lab Results 03/14/23 Range/Units 14:00 SARS-CoV-2 (PCR) Negative (Negative) Influenza A (RT-PCR) Flu a negative (NEGATIVE) Influenza B (RT-PCR) Flu b negative (NEGATIVE) RSV (PCR) Negative (Negative) Imaging Data Chest x-ray: Radiologist's Impression: PROCEDURE:? XR CHEST 2V ? INDICATIONS:? cough x 2 weeks ? TECHNIQUE:? 2 views of the chest were acquired.? ? COMPARISON:? [facility], CR, XR CHEST 2V, 02/03/2023, 15:08. ? FINDINGS:? ? Surgical changes and devices:? None.? ? Lungs and pleura:? Lungs are clear.? No pleural effusions or pneumothorax.? ? Mediastinum:? Mediastinal contours are normal.? Heart size is normal.? ? Bones and chest wall:? No suspicious bony abnormalities.? Soft tissues appear unremarkable.? ? ? IMPRESSION:? No acute cardiopulmonary abnormality is seen. ? ? ? Approved by: Obdulio Pace M.D. on 03/14/2023 at 14:37? MDM Narrative Medical decision making narrative: Patient overall appears well she received albuterol treatment which did help. She is afebrile x-ray is negative for pneumonia. Viral panel is also negative. At this time she is a history of asthma improved with asthma medication. Reasonable to start her on prednisone. If symptoms should worsen or change then return to ED. Discharge Plan Departure Patient Disposition: Home Clinical Impression: Upper respiratory infection Instructions: Asthma -- Adult Activity Restrictions/Additional Instructions: *You have been diagnosed with asthma exacerbation *What to do: COVID and viral testing negative. X-ray does not show any type of pneumonia no need for antibiotics. I think her cough is likely from an asthma exacerbation. *Continue to take medications as directed Prednisone 40 mg once daily for 5 days--> [facility] Albuterol inhaler 1-2 puffs every 4 hours if needed for shortness of breath or cough especially before night *Follow up with your primary care provider in 2-3 days or call [phone] *Return to ER if you should have increasing cough shortness of breath chest or any new, worsening or concerning symptoms Prescriptions: New prednisone 20 mg tablet 40 mg PO DAILY Qty: 10 0RF No Action lisinopril 20 mg tablet 20 mg PO DAILY ipratropium bromide 42 mcg (0.06 %) spray,non-aerosol intranasal Prilosec 10 mg susp,delayed release for recon 10 mg PO DAILY albuterol sulfate 90 mcg/actuation HFA aerosol inhaler 2 puff inhalation Q6H PRN (Reason: shortness of breath or wheezing) Qty: 6.7 1RF ipratropium bromide 21 mcg (0.03 %) spray,non-aerosol 2 spray intranasal BID Qty: 30 2RF Rx Instructions: administer into each nostril Referrals: Miscellaneous,Doctor, MD [Primary Care Provider] - Stand Alone Forms: Patient Portal/API
[2023-03-14 14:43] LABS: Influenza A - CEPHEID Flu A NEGATIVE (NEGATIVE); Influenza B - CEPHEID Flu B NEGATIVE (NEGATIVE); Respiratory Syncytial Virus Negative (Negative)
[2023-03-14 14:44] VITALS: PULSE 82; RESP 18; O2SAT 98
[2023-03-14] MEDS: ALBUTEROL/IPRATROPIUM 3 ML AMPUL INH (14:44)
[2023-03-14 14:45] LABS: COVID-19 CEPHEID 4-PLEX PCR Negative (Negative)
[2023-03-14 15:56] VITALS: BP 165/83; PULSE 91; RESP 16; O2SAT 98
== END 2023-03-14 15:57 | disposition home or self-care (01) ==
PROVIDERS: Physician Assistant Medical; Emergency Provider Emergency Medicine
DX: J06.9 Acute upper respiratory infection, unspecified (principal); Z20.822 Contact with and (suspected) exposure to COVID-19
CPT/HCPCS: 0241U; 71046; 94640; 99283

== ENCOUNTER 2023-05-01 10:50 | Emergency (ER) | payer MEDICARE, SELFPAY ==
[2023-05-01 11:15] VITALS: BP 163/72; PULSE 65; RESP 17; TEMP 36.9; O2SAT 97; BMI 33.5
--- NOTE | 2023-05-01 11:20 | DI.RAD.S_ITS ---
PROCEDURE: XR CHEST 2V INDICATIONS: uri TECHNIQUE: 2 views of the chest were acquired. COMPARISON: [facility], CR, XR CHEST 2V, 03/14/2023, 13:59. FINDINGS: Surgical changes and devices: None. Lungs and pleura: Lungs are clear. No pleural effusions or pneumothorax. Mediastinum: Mediastinal contours are normal. Heart size is normal. Bones and chest wall: No suspicious bony abnormalities. Soft tissues appear unremarkable. IMPRESSION: No acute cardiopulmonary abnormality is seen. Dictated by: Isiah Slade M.D. on 05/01/2023 at 10:46 Approved by: Isiah Slade M.D. on 05/01/2023 at 10:47
--- NOTE | 2023-05-01 14:32 | PC.NURSE ---
This EDRn called RT at this time to come and evaluate patient.
[2023-05-01] MEDS: ALBUTEROL 2.5 MG/3 ML NEB (ADULT) INH (14:52)
[2023-05-01 14:58] VITALS: PULSE 79; RESP 18; O2SAT 97
--- NOTE | 2023-05-01 15:13 | ED.URI ---
HPI - URI/Sore Throat General Chief Complaint: Upper Respiratory Symptoms Stated Complaint: congestion, cough, wheezing Time Seen by Provider: 05/01/23 15:12 Source: patient Mode of arrival: Ambulatory History of Present Illness HPI Narrative: 68-year-old female history of hypertension, chronic reactive airway disease and recurrent sinusitis. Patient presents with complaint of recent upper respiratory infection with nasal congestion and cough has been present for about a week, patient states she has nighttime asthma typically on the cough has been making things significantly worse. She is felt more tight and wheezy. She states no fevers currently. Nasal congestion has been present. No chest pain or pressure. She does feel short of breath. She is coughed up yellow and clear productive sputum. She denies any nausea or vomiting. No diarrhea constipation, states chronically swollen lower extremities but no new swelling. She is had lightheadedness or passing out. Patient uses albuterol regularly in the evenings she states it is helpful but does not last. She states she takes Zyrtec daily as well as uses Flonase. She did try Mucinex which he states was not helpful. Patient does follow regularly with pulmonology. She does not use a steroid inhaler regularly. States her medications include lisinopril, albuterol, Flonase and Zyrtec. No recent changes to medications. No prior surgeries. Allergic to amoxicillin. No tobacco, alcohol or illicit. Primary care is a [facility] on [facility]. She does follow with pulmonology. Related Data Home Medications Medication Instructions Recorded Confirmed ipratropium bromide 42 mcg (0.06 intranasal 01/20/23 03/09/23 %) nasal spray lisinopril 20 mg tablet 20 mg PO DAILY 01/20/23 03/09/23 omeprazole magnesium 10 mg oral 10 mg PO DAILY 01/20/23 03/09/23 suspension,delayed release (Prilosec) Previous Rx's Medication Instructions Recorded albuterol sulfate 90 mcg/actuation 2 puff inhalation Q6H PRN 02/03/23 aerosol inhaler shortness of breath or wheezing #6.7 grams ipratropium bromide 21 mcg (0.03 2 spray intranasal BID #30 mL 03/09/23 %) nasal spray prednisone 20 mg tablet 40 mg (2 x 20 mg) PO DAILY #10 tabs 03/14/23 benzonatate 100 mg capsule 100 mg PO BID PRN cough #20 caps 03/19/23 prednisone 10 mg tablets in a dose See Rx Instructions PO .COMPLEX 05/01/23 pack #15 ea Allergies Allergy/AdvReac Type Severity Reaction Status Date / Time amoxicillin AdvReac Insomnia Verified 03/09/23 13:04 Review of Systems Review of Systems ROS Unobtainable: All systems reviewed & are unremarkable except as noted in HPI and below Patient History Surgical History H/O sinus surgery Social History Smoking Status: Never smoker Smoking Status: Never smoker alcohol intake frequency: 0-2 drinks per day Substance Use Type: does not use Exam Narrative Exam Narrative: GEN: well nourished, well appearing female, alert and oriented x 3, patient appears to be in mild distress. HEENT: Atraumatic, pupils are equal round reactive to light, extraocular movements are intact, nares clear rhinorrhea, TMs are clear with no fluid, there is no conjunctival pallor. Throat is clear without any exudates, erythema, tonsillar enlargement or uvular deviation HEART: Regular rate and rhythm without murmur, clicks, rubs. LUNGS:Lungs breath sounds equal bilaterally, scant wheezes at the bases after breathing treatment patient does not have any rales, crackles, chest moves symmetrically, no tachypnea accessory muscle use. Patient's ambulatory pulse ox was 97% on room air with a heart rate in the 80s. ABD:bowel sounds normal, soft, non-tender, no guarding, rebound, rigidity, no masses noted, no hepatosplenomegaly :No CVA tenderness MSCL: Non-tender, no muscle atrophy, muscles strength 5/5 upper and lower extremities, full range of motion, normal gait NEURO:CN 2-12 intact, sensation normal PSYCH: Patient was quite tearful but states it is because she seated in room 13 which is are isolation/psychiatric room. She states she is claustrophobic and finds it very stressful as there is no windows. She was moved to the [place] and feels significantly better. Initial Vital Signs Initial Vital Signs: Vital Signs Temperature 98.4 F 05/01/23 11:15 Pulse Rate 65 05/01/23 11:15 Respiratory Rate 17 05/01/23 11:15 Blood Pressure 163/72 H 05/01/23 11:15 Pulse Oximetry 97 05/01/23 11:15 Oxygen Delivery Method Room Air 05/01/23 11:15 Course Orders Ordered: ED Orders 05/01/23 11:20 Chest [XR chest 2V] Stat Discontinued Medications Albuterol (Albuterol 2.5 Mg/3 Ml Neb (Adult)) 2.5 mg INH NOW ONE Stop: 05/01/23 14:49 Last Admin: 05/01/23 14:52 Dose: 2.5 mg Documented By: SAT Prednisone (Prednisone 20 Mg Tablet) 60 mg PO NOW ONE Stop: 05/01/23 15:27 Last Admin: 05/01/23 15:31 Dose: 60 mg Documented By: DENNIS Vital Signs Vital signs: Vital Signs - 8 hr 05/01/23 11:15 05/01/23 14:58 05/01/23 15:40 Temperature 98.4 F Pulse Rate 65 79 76 Respiratory Rate 17 18 20 Blood Pressure 163/72 H 146/78 H Pulse Oximetry 97 97 96 Oxygen Delivery Method Room Air Room Air Room Air MDM - URI/Sore Throat Imaging Data Chest x-ray: Radiologist's Impression: [address] [address] XRay Report Signed Patient: Cecy Carrnaza MR#: [id number] : 1955 Acct:[id number] Age/Sex: 68 / F Date of Service: 05/01/23 Loc: ED Accession Number: [id number] Procedure: XR chest 2V Ordering Provider: Cori Cerna D.O. PROCEDURE: XR CHEST 2V INDICATIONS: uri TECHNIQUE: 2 views of the chest were acquired. COMPARISON: [facility], , XR CHEST 2V, 03/14/2023, 13:59. FINDINGS: Surgical changes and devices: None. Lungs and pleura: Lungs are clear. No pleural effusions or pneumothorax. Mediastinum: Mediastinal contours are normal. Heart size is normal. Bones and chest wall: No suspicious bony abnormalities. Soft tissues appear unremarkable. IMPRESSION: No acute cardiopulmonary abnormality is seen. Dictated by: Isiah Slade M.D. on 05/01/2023 at 10:46 Approved by: Isiah Slade M.D. on 05/01/2023 at 10:47 MDM Narrative Medical decision making narrative: 60-year-old female with history of asthma/reactive airway, patient did have wheeze examination received albuterol treatment and had improvement. She is not tachycardic not hypoxic ambulatory pulse ox is appropriate. She is had recent upper respiratory infection what seems to be kicking off her reactive airway symptoms. Chest x-ray shows no pneumonia or acute changes. No other red flag symptoms felt that requiring cardiac workup. Discussed with patient she is had treatment with steroids before but not regularly. We will give a short course of oral steroids with 1st dose here. Continue her Flonase, albuterol which she states has recently been refilled and Zyrtec daily. Discussed return precautions all questions answered. Patient feels comfortable with this plan. Discharge Plan Departure Patient Disposition: Home Clinical Impression: Bronchitis Instructions: DI for Acute Bronchitis Activity Restrictions/Additional Instructions: I suspect you are having worsening of your breathing secondary to an upper respiratory infection. Please take steroids until completed this will help your airways. Continue to use her albuterol as needed. Continue your home medications including her Zyrtec and Flonase daily. Prescription sent to [facility] in [place] Please return for fevers, new or worsening chest pain, shortness of breath, lightheadedness or passing out, coughing up blood, persistent vomiting, new or worsening swelling in her lower extremities or other new or concerning changes. Prescriptions: New prednisone 10 mg tablets,dose pack See Rx Instructions .ROUTE .COMPLEX Qty: 15 0RF Rx Instructions: Take 5 tablets p.o. x1 day, then 4 tablets p.o. x1 day, 3 tablets p.o. x1 day, then 2 tablets p.o. x1 day then 1 tablet p.o. x1 day No Action lisinopril 20 mg tablet 20 mg PO DAILY ipratropium bromide 42 mcg (0.06 %) spray,non-aerosol intranasal Prilosec 10 mg susp,delayed release for recon 10 mg PO DAILY albuterol sulfate 90 mcg/actuation HFA aerosol inhaler 2 puff inhalation Q6H PRN (Reason: shortness of breath or wheezing) Qty: 6.7 1RF benzonatate 100 mg capsule 100 mg PO BID PRN (Reason: cough) Qty: 20 0RF prednisone 20 mg tablet 40 mg PO DAILY Qty: 10 0RF ipratropium bromide 21 mcg (0.03 %) spray,non-aerosol 2 spray intranasal BID Qty: 30 2RF Rx Instructions: administer into each nostril Referrals: Kelly Best PA-C [Primary Care Provider] - Stand Alone Forms: Patient Portal/API
[2023-05-01] MEDS: predniSONE 20 MG TABLET 60 MG PO (15:31)
[2023-05-01 15:40] VITALS: BP 146/78; PULSE 76; RESP 20; O2SAT 96
== END 2023-05-01 15:35 | disposition home or self-care (01) ==
PROVIDERS: Emergency Provider Emergency Medicine; PCP Physician Assistant
DX: J40 Bronchitis, not specified as acute or chronic (principal)
CPT/HCPCS: 71046; 94640; 99283; J7613

== ENCOUNTER 2023-06-10 10:59 | Emergency (ER) | payer MEDICARE, SELFPAY ==
[2023-06-10 11:01] VITALS: BP 170/79; PULSE 80; RESP 14; TEMP 36.6; O2SAT 97; BMI 33.5
--- NOTE | 2023-06-10 11:22 | DI.RAD.S_ITS ---
PROCEDURE: XR CHEST 2V INDICATIONS: cough/ sob TECHNIQUE: 2 views of the chest were acquired. COMPARISON: [facility], CR, XR CHEST 2 VIEWS, 05/25/2022, 11:42. [facility], CR, XR CHEST 2V, 10/30/2022, 8:19. [facility], CR, XR CHEST 2V, 05/01/2023, 11:22. FINDINGS: Surgical changes and devices: None. Lungs and pleura: Stable oval density in the medial left upper lung zone consistent with degenerative changes at the first rib. Lungs are clear. No pleural effusions or pneumothorax. Mediastinum: Mediastinal contours are normal. Heart size is normal. Bones and chest wall: No suspicious bony abnormalities. Soft tissues appear unremarkable. IMPRESSION: No acute cardiopulmonary abnormality is seen. No focal airspace disease. Dictated by: Hieu Biswas M.D. on 06/10/2023 at 12:23 Approved by: Hieu Biswas M.D. on 06/10/2023 at 12:26
--- NOTE | 2023-06-10 11:35 | ED.URI ---
HPI - URI/Sore Throat <Sergio Gomez PA-C - Last Filed: 06/10/23 13:04> General Chief Complaint: Upper Respiratory Symptoms Stated Complaint: congestion/cough/wheezing getting worse Time Seen by Provider: 06/10/23 11:18 Source: patient Mode of arrival: Ambulatory History of Present Illness HPI Narrative: This is a 68-year-old female presents to the emergency department due to worsening shortness of breath over the last couple of days. States that this is a very chronic issue for her and that she was a chronic reactive airway disease that flares up with the seasons as well as chronic postnasal drip and congestion. She is been seen here multiple times over the last couple of months for very similar symptoms. Does not report any new chest pain, left arm pain, surgeries, abdominal pain, fevers, or any other concerning signs or symptoms. Has use her albuterol inhaler with moderate relief. Related Data Home Medications Medication Instructions Recorded Confirmed lisinopril 20 mg tablet 20 mg PO DAILY 01/20/23 06/03/23 omeprazole magnesium 10 mg oral 10 mg PO DAILY 01/20/23 06/03/23 suspension,delayed release (Prilosec) cetirizine 10 mg tablet (Zyrtec) 10 mg PO DAILY PRN 06/03/23 06/03/23 fluticasone propionate 50 1 spray intranasal BID 06/03/23 06/03/23 mcg/actuation nasal spray,suspension (Flonase Allergy Relief) Previous Rx's Medication Instructions Recorded albuterol sulfate 90 mcg/actuation 2 puff inhalation Q6H PRN 02/03/23 aerosol inhaler shortness of breath or wheezing #6.7 grams benzonatate 100 mg capsule 100 mg PO BID PRN cough #20 caps 03/19/23 benzonatate 100 mg capsule 100 mg PO BID PRN cough #20 caps 06/03/23 prednisone 20 mg tablet 40 mg (2 x 20 mg) PO DAILY 5 days 06/10/23 #10 tabs Allergies Allergy/AdvReac Type Severity Reaction Status Date / Time amoxicillin AdvReac Insomnia Verified 06/10/23 11:03 Review of Systems <Sergio Gomez PA-C - Last Filed: 06/10/23 13:04> Review of Systems Narrative: GENERAL: Denies chills, fatigue, malaise, fever, sweats. HEENT: Denies sinus pain, ear pain, sore throat, difficulty swallowing, dizziness. RESPIRATORY: Reports shortness of breath, cough, wheezing Denies hemoptysis, sputum. CARDIOVASCULAR: Denies chest pain, palpitations, orthopnea, edema, GASTROINTESTINAL: Denies nausea, vomiting, abdominal pain, diarrhea, constipation, melena. : Denies dysuria, frequency, incontinence, hematuria, urinary retention. MUSCULOSKELETAL: denies weakness, joint pain, or bony pain SKIN: Denies rash, skin lesions, or other NEUROLOGIC: Denies weakness, headache, numbness, change in speech, confusion, seizures, incoordination. PSYCHIATRIC: No concerning psychosocial issues. 12 point review of systems is negative except for those stated above Patient History <Sergio Gomez PA-C - Last Filed: 06/10/23 13:04> Surgical History H/O sinus surgery Social History Smoking Status: Never smoker Smoking Status: Never smoker alcohol intake frequency: 0-2 drinks per day Substance Use Type: does not use Exam <Sergio Gomez PA-C - Last Filed: 06/10/23 13:04> Narrative Exam Narrative: GENERAL: Well-developed patient, in mild distress. HEAD: Atraumatic. Normocephalic. EYES: Pupils equal round and reactive. Extraocular motions intact. No scleral icterus. No injection or drainage. ENT: Nose without bleeding, purulent drainage. Throat without erythema, tonsillar hypertrophy or exudate. Airway patent. NECK: Trachea midline. Non tender CARDIOVASCULAR: Regular rate and rhythm without murmurs, gallops, or rubs. RESPIRATORY: Wheezing bilaterally GASTROINTESTINAL: Abdomen soft, non-tender, nondistended. EXTREMITIES: No edema or joint tenderness. BACK: Nontender without deformity or crepitance. No flank tenderness. NEURO: AOx3. SKIN: No rash or erythema of visible areas Initial Vital Signs Initial Vital Signs: Vital Signs Temperature 97.9 F 06/10/23 11:01 Pulse Rate 80 06/10/23 11:01 Respiratory Rate 14 06/10/23 11:01 Blood Pressure 170/79 H 06/10/23 11:01 Pulse Oximetry 97 06/10/23 11:01 Oxygen Delivery Method Room Air 06/10/23 11:01 <Cori Cerna DO - Last Filed: 06/13/23 07:35> Initial Vital Signs Initial Vital Signs: Vital Signs Temperature 97.9 F 06/10/23 11:01 Pulse Rate 80 06/10/23 11:01 Respiratory Rate 14 06/10/23 11:01 Blood Pressure 170/79 H 06/10/23 11:01 Pulse Oximetry 97 06/10/23 11:01 Oxygen Delivery Method Room Air 06/10/23 11:01 Course <Sergio Gomez PA-C - Last Filed: 06/10/23 13:04> Orders Ordered: Discontinued Medications Albuterol/Ipratropium (Albuterol/Ipratropium 3 Ml Ampul) 3 ml INH NOW ONE Stop: 06/10/23 11:49 Last Admin: 06/10/23 12:02 Dose: 3 ml Documented By: WILLIAN Vital Signs Vital signs: Vital Signs - 8 hr 06/10/23 11:01 06/10/23 12:02 06/10/23 12:16 Temperature 97.9 F Pulse Rate 80 77 80 Respiratory Rate 14 14 14 Blood Pressure 170/79 H 117/73 Pulse Oximetry 97 96 98 Oxygen Delivery Method Room Air Room Air Room Air <Cori Cerna DO - Last Filed: 06/13/23 07:35> Orders Ordered: Discontinued Medications Albuterol/Ipratropium (Albuterol/Ipratropium 3 Ml Ampul) 3 ml INH NOW ONE Stop: 06/10/23 11:49 Last Admin: 06/10/23 12:02 Dose: 3 ml Documented By: WILLIAN Vital Signs Vital signs: Vital Signs - 8 hr 06/10/23 11:01 06/10/23 12:02 06/10/23 12:16 Temperature 97.9 F Pulse Rate 80 77 80 Respiratory Rate 14 14 14 Blood Pressure 170/79 H 117/73 Pulse Oximetry 97 96 98 Oxygen Delivery Method Room Air Room Air Room Air MDM - URI/Sore Throat <Sergio Gomez PA-C - Last Filed: 06/10/23 13:04> Lab Data Labs: Lab Results 06/10/23 Range/Units 11:24 Chlamy pneumoniae PCR Not detected (Not Detect) Adenovirus (PCR) Not detected (Not Detect) B.parapertussis DNA PCR Not detected (Not Detecte) Coronavirus OC43 (PCR) Not detected (Not Detect) Coronavirus HKU1 (PCR) Not detected (Not Detect) Coronavirus 229E (PCR) Not detected (Not Detect) SARS-CoV-2 (PCR) Not detected (Not Detecte) Coronavirus NL63 (PCR) Not detected (Not Detect) Human Metapneumovir PCR Not detected (Not Detect) Influenza Type A (PCR) Not detected (Not Detect) Influenza Type B (PCR) Not detected (Not Detect) M. pneumoniae (PCR) Not detected (Not Detect) Parainfluenza 1 (PCR) Not detected (Not Detect) Parainfluenza 2 (PCR) Not detected (Not Detect) Parainfluenza 3 (PCR) Not detected (Not Detect) Parainfluenza 4 (PCR) Not detected (Not Detect) RSV (PCR) Not detected (Not Detect) Entero/Rhino (PCR) Not detected (Not Detect) Imaging Data Chest x-ray: Radiologist's Impression: [address] [address] XRay Report Signed Patient: Cecy Carranza MR#: [id number] : 1955 Acct:[id number] Age/Sex: 68 / F Date of Service: 06/10/23 Loc: ED Accession Number: [id number] Procedure: XR chest 2V Ordering Provider: Sergio Gomez P.A-C PROCEDURE: XR CHEST 2V INDICATIONS: cough/ sob TECHNIQUE: 2 views of the chest were acquired. COMPARISON: [facility], CR, XR CHEST 2 VIEWS, 05/25/2022, 11:42. [facility], CR, XR CHEST 2V, 10/30/2022, 8:19. [facility], CR, XR CHEST 2V, 05/01/2023, 11:22. FINDINGS: Surgical changes and devices: None. Lungs and pleura: Stable oval density in the medial left upper lung zone consistent with degenerative changes at the first rib. Lungs are clear. No pleural effusions or pneumothorax. Mediastinum: Mediastinal contours are normal. Heart size is normal. Bones and chest wall: No suspicious bony abnormalities. Soft tissues appear unremarkable. IMPRESSION: No acute cardiopulmonary abnormality is seen. No focal airspace disease. Dictated by: Hieu Biswas M.D. on 06/10/2023 at 12:23 Approved by: Hieu Biswas M.D. on 06/10/2023 at 12:26 MDM Narrative Medical decision making narrative: MDM * differential diagnosis includes but not limited to asthma, pneumonia, COPD exacerbation * Prior records reviewed: Patient was seen about a month and a half ago due to congestion, cough, wheezing. History of hypertension, chronic reactive airway disease, and recurrent sinusitis. Chest x-ray unremarkable. Receives albuterol which had some improvement. Was given a short course of oral steroids as well as recommended continuing her Flonase and albuterol. Was also seen in the month prior. History of asthma. Albuterol was given. Chest x-ray unremarkable. Viral panel was negative. Patient was given a course of prednisone. * My lab interpretation: Respiratory panel negative. * My imgaing interpretation: Chest x-ray unremarkable there * Clinical Decision Rules/Scores evaluated: None * Independent discussions with: None ED Course: This is a 68-year-old female presents emergency department due to a repeat flare-up of her chronic obstructive airway disease. This is very retained with the patient and she is been here for very similar in the last couple of months. Chest x-ray and viral panel testing negative. Vitals within normal limits. Patient did have some wheezing initially. She was giving in a breathing treatment with some improvement. We will discharge with a short course of steroids as well as instructions to continue with the albuterol inhaler and follow up with the primary care provider. Shared Decision Making: Discussed plan with the patient who is comfortable with the plan. Social Considerations: None Disposition: Discharged to home <Cori Cerna, - Last Filed: 06/13/23 07:35> Lab Data Labs: Lab Results 06/10/23 Range/Units 11:24 Chlamy pneumoniae PCR Not detected (Not Detect) Adenovirus (PCR) Not detected (Not Detect) B.parapertussis DNA PCR Not detected (Not Detecte) Coronavirus OC43 (PCR) Not detected (Not Detect) Coronavirus HKU1 (PCR) Not detected (Not Detect) Coronavirus 229E (PCR) Not detected (Not Detect) SARS-CoV-2 (PCR) Not detected (Not Detecte) Coronavirus NL63 (PCR) Not detected (Not Detect) Human Metapneumovir PCR Not detected (Not Detect) Influenza Type A (PCR) Not detected (Not Detect) Influenza Type B (PCR) Not detected (Not Detect) M. pneumoniae (PCR) Not detected (Not Detect) Parainfluenza 1 (PCR) Not detected (Not Detect) Parainfluenza 2 (PCR) Not detected (Not Detect) Parainfluenza 3 (PCR) Not detected (Not Detect) Parainfluenza 4 (PCR) Not detected (Not Detect) RSV (PCR) Not detected (Not Detect) Entero/Rhino (PCR) Not detected (Not Detect) Discharge Plan Departure Patient Disposition: Home Clinical Impression: Reactive airway disease Activity Restrictions/Additional Instructions: Thank you for coming to the [facility] Emergency Department today. Your chest x-ray was negative for any pneumonia, or other lung abnormality. Your respiratory viral panel was also negative. Suspect this is a routine flare-up of your chronic reactive airway disease. Please take the oral steroids as prescribed and use your albuterol inhaler as needed. I also recommend he follow up with your primary care provider for a long-term solution for her symptoms. I hope you feel better soon. Please follow up with your primary care provider within a week if your symptoms continue. If you do not have a primary care provider please contact the [facility] Resource line at [phone]. They will ask some questions about your medical history and help you get set up with a provider in the community. Prescriptions: New prednisone 20 mg tablet 40 mg PO DAILY 5 Days Qty: 10 0RF No Action lisinopril 20 mg tablet 20 mg PO DAILY Prilosec 10 mg susp,delayed release for recon 10 mg PO DAILY albuterol sulfate 90 mcg/actuation HFA aerosol inhaler 2 puff inhalation Q6H PRN (Reason: shortness of breath or wheezing) Qty: 6.7 1RF benzonatate 100 mg capsule 100 mg PO BID PRN (Reason: cough) Qty: 20 0RF fluticasone propionate [Flonase Allergy Relief] 50 mcg/actuation spray,suspension 1 spray intranasal BID Rx Instructions: administer into each nostril cetirizine [Zyrtec] 10 mg tablet 10 mg PO DAILY PRN benzonatate 100 mg capsule 100 mg PO BID PRN (Reason: cough) Qty: 20 0RF Referrals: Kelly Best PA-C [Primary Care Provider] - Stand Alone Forms: Patient Portal/API ED Sign-out <Cori Cerna DO - Last Filed: 06/13/23 07:35> Cosign ED Attending Cosignature Attestation: I was immediately available in the department for consultation.
[2023-06-10 12:02] VITALS: PULSE 77; RESP 14; O2SAT 96
[2023-06-10] MEDS: ALBUTEROL/IPRATROPIUM 3 ML AMPUL INH (12:02)
[2023-06-10 12:16] VITALS: BP 117/73; PULSE 80; RESP 14; O2SAT 98
[2023-06-10 12:48] LABS: Adenovirus Not Detected (Not Detect); B. parapertussis Not Detected (Not Detecte); Bordetella pertussis Not Detected (Not Detect); Chlamydophila pneumoniae Not Detected (Not Detect); Coronavirus 229E Not Detected (Not Detect); Coronavirus HKU1 Not Detected (Not Detect); Coronavirus NL 63 Not Detected (Not Detect); Coronavirus OC43 Not Detected (Not Detect); Human Metapneumovirus Not Detected (Not Detect); Human Rhinovirus/Enterovirus Not Detected (Not Detect); Influenza A Not Detected (Not Detect); Influenza B Not Detected (Not Detect); Mycoplasma pneumoniae Not Detected (Not Detect); Parainfluenza Virus 1 Not Detected (Not Detect); Parainfluenza Virus 2 Not Detected (Not Detect); Parainfluenza Virus 3 Not Detected (Not Detect); Parainfluenza Virus 4 Not Detected (Not Detect); Respiratory Syncytial Virus Not Detected (Not Detect); SARS- CoV-2 Not Detected (Not Detecte)
[2023-06-10 13:11] VITALS: BP 127/70; PULSE 75; RESP 12; O2SAT 98
== END 2023-06-10 13:12 | disposition home or self-care (01) ==
PROVIDERS: Emergency Provider Physician Assistant Medical; PCP Physician Assistant
DX: J45.909 Unspecified asthma, uncomplicated (principal)
CPT/HCPCS: 71046; 87633; 94640; 99283; 99284

== ENCOUNTER 2023-07-08 11:55 | Emergency (ER) | payer MEDICARE, SELFPAY ==
[2023-07-08 12:10] VITALS: BP 172/86; PULSE 77; RESP 18; TEMP 36.7; O2SAT 98; BMI 33.5
--- NOTE | 2023-07-08 12:14 | DI.RAD.S_ITS ---
PROCEDURE: XR CHEST 1V INDICATIONS: chest pain TECHNIQUE: One view of the chest was acquired. COMPARISON: [facility], CR, XR CHEST 2V, 06/10/2023, 11:36. FINDINGS: Surgical changes and devices: None. Lungs and pleura: Lungs are clear. No pleural effusions or pneumothorax. Mediastinum: Mediastinal contours appear stable. Heart size is normal. Bones and chest wall: No suspicious bony lesions. Overlying soft tissues appear unremarkable. IMPRESSION: Stable radiographic evaluation of the chest without acute cardiopulmonary abnormalities or focal airspace disease. Dictated by: Hieu Biswas M.D. on 07/08/2023 at 12:59 Approved by: Hieu Bsiwas M.D. on 07/08/2023 at 13:00
[2023-07-08 12:39] LABS: Add Manual Diff / Slide Review NO; Basophils Absolute Auto 100 /uL (0-100); Basophils Percent Auto 0.8 % (0-2); Eosinophils Absolute Auto 600 /uL (0-450); Eosinophils Percent Auto 10.3 % (2-4); Hematocrit 41.2 % (36-46); Hemoglobin 13.7 g/dL (12.0-16.0); Lymphocytes Absolute Auto 1500 /uL (1100-4500); Lymphocytes Percent Auto 24.7 % (25-40); Mean Corpuscular HGB Conc 33.3 % (30-36); Mean Corpuscular Hemoglobin 27.8 PG (26-34); Mean Corpuscular Volume 83.6 fL (80-100); Monocytes Absolute Auto 600 /uL (0-900); Monocytes Percent Auto 9.7 % (3-14); Neutrophils Absolute Auto 3400 /uL (1500-7000); Neutrophils Percent Auto 54.5 % (50-75); Platelet Count 255 X10^3/uL (150-400); Red Blood Cell Count 4.93 X10^6/uL (4.0-5.2); Red Cell Distribution Width 13.8 % (11.6-14.8); White Blood Cell Count 6.2 X10^3/uL (4.5-11.0)
[2023-07-08 12:42] LABS: INR 0.9 (0.9-1.3); Prothrombin Time 10.7 SECONDS (9.4-12.5)
[2023-07-08 12:45] LABS: PTT Partial Thromboplastin Tim 28 SECONDS (25.1-36.5)
[2023-07-08] MEDS: ASPIRIN 81 MG CHEW TAB 324 MG PO (12:46)
[2023-07-08 12:57] LABS: Alanine Aminotransferase 16 IU/L (<35); Albumin Globulin Ratio 1.3 (1.0-2.8); Alkaline Phosphatase 77 U/L (38-126); BUN Creatinine Ratio 17.3 (6-22); Bilirubin Total 0.7 mg/dL (0.2-1.3); Blood Urea Nitrogen 14 mg/dL (7-17); Calcium 9.5 mg/dL (8.4-10.2); Carbon Dioxide 26 mmol/L (22-32); Chloride 104 mmol/L (98-107); Creatine Kinase 45 U/L (30-135); Estimated Glomerular Filt Rate > 60 mL/min (>60); Globulin 3.2 g/dL (1.7-4.1); Glucose 128 mg/dL (80-110); HEMOLYSIS < 15 (0-50); Lipase 86 U/L (23-300); Magnesium 1.9 mg/dL (1.6-2.3); Potassium 4.2 mmol/L (3.4-5.1); Sodium 139 mmol/L (137-145); Total Protein 7.2 g/dL (6.3-8.2)
--- NOTE | 2023-07-08 13:04 | ED_ITS ---
HPI - Chest Pain General Chief Complaint: Chest Pain Stated Complaint: back, shoulder and chest pain Time Seen by Provider: 07/08/23 12:34 Source: patient Mode of arrival: Ambulatory Limitations: no limitations History of Present Illness HPI narrative: Patient is a 60-year-old female who is here for evaluation of several days of right-sided shoulder blade/chest/shoulder discomfort. Does have history of asthma. Very often she coughs in the morning. She thinks that maybe the congestion is getting worse. She thought that she would fevers last evening but nothing today. No left-sided discomfort. No abdominal discomfort. No recent travel. No vomiting. No skin changes. She describes it as a sharp discomfort that radiates around to her front and then a fullness under her right breast. Has not tried anything for the symptoms prior to arrival. Related Data Home Medications Medication Instructions Recorded Confirmed lisinopril 20 mg tablet 20 mg PO DAILY 01/20/23 06/03/23 omeprazole magnesium 10 mg oral 10 mg PO DAILY 01/20/23 06/03/23 suspension,delayed release (Prilosec) cetirizine 10 mg tablet (Zyrtec) 10 mg PO DAILY PRN 06/03/23 06/03/23 fluticasone propionate 50 1 spray intranasal BID 06/03/23 06/03/23 mcg/actuation nasal spray,suspension (Flonase Allergy Relief) Previous Rx's Medication Instructions Recorded albuterol sulfate 90 mcg/actuation 2 puff inhalation Q6H PRN 02/03/23 aerosol inhaler shortness of breath or wheezing #6.7 grams benzonatate 100 mg capsule 100 mg PO BID PRN cough #20 caps 03/19/23 benzonatate 100 mg capsule 100 mg PO BID PRN cough #20 caps 06/03/23 Allergies Allergy/AdvReac Type Severity Reaction Status Date / Time amoxicillin AdvReac Insomnia Verified 07/08/23 12:13 Review of Systems Review of Systems ROS Unobtainable: All systems reviewed & are unremarkable except as noted in HPI and below Patient History Surgical History H/O sinus surgery Social History Smoking Status: Never smoker Smoking Status: Never smoker alcohol intake frequency: 0-2 drinks per day Substance Use Type: does not use Exam Initial Vital Signs Initial Vital Signs: Vital Signs Temperature 98.0 F 07/08/23 12:10 Pulse Rate 77 07/08/23 12:10 Respiratory Rate 18 07/08/23 12:10 Blood Pressure 172/86 H 07/08/23 12:10 Pulse Oximetry 98 07/08/23 12:10 Oxygen Delivery Method Room Air 07/08/23 12:10 Const General: cooperative, comfortable and No ill appearing HENMT Head: normal to inspection and normocephalic Chest Chest: normal inspection of the chest, No crepitus and No tenderness Resp Effort & Inspection: normal respiratory effort Auscultation: clear to auscultation bilaterally Cardio Rate: regular rate Rhythm: regular rhythm GI Inspection: normal to inspection and non-distended Palpation: soft and No tender Back/Spine/Pelvis Back: No CVA tenderness Skin General: no rashes or lesions noted Neuro General: patient alert, patient awake and moves all extremities Extrem General: capillary refill normal Course Orders Ordered: ED Orders 07/08/23 12:14 XR chest 1V Stat 07/08/23 12:20 Complete Blood Count AUTO DIFF Stat Comprehensive Metabolic Panel Stat D Dimer Stat Lipase Stat Magnesium Stat PTT Partial Thromboplastin Clark Stat Prothrombin Time INR Stat Troponin & CK Cardiac Panel Stat 07/08/23 12:25 EKG-12 Lead Stat 07/08/23 13:46 CT angio chest PE protocol Stat Discontinued Medications Aspirin (Aspirin 81 Mg Chew Tab) 324 mg PO NOW ONE Stop: 07/08/23 12:15 Last Admin: 07/08/23 12:46 Dose: 324 mg Documented By: KIRT Ketorolac Tromethamine (Ketorolac 30 Mg/Ml Vial) 30 mg IV NOW ONE Stop: 07/08/23 13:15 Last Admin: 07/08/23 13:18 Dose: 30 mg Documented By: TIKA Vital Signs Vital signs: Vital Signs - 8 hr 07/08/23 12:10 07/08/23 13:21 07/08/23 14:52 Temperature 98.0 F Pulse Rate 77 69 71 Respiratory Rate 18 20 21 Blood Pressure 172/86 H 167/81 H 187/93 H Pulse Oximetry 98 98 98 Oxygen Delivery Method Room Air Room Air MDM - Chest Pain Medical Records Data Attestation: I reviewed the patient's medical records. Lab Data Attestation: I reviewed the patient's lab results. 07/08/23 12:20 07/08/23 12:20 Labs: Lab Results 07/08/23 Range/Units 12:20 WBC 6.2 (4.5-11.0) X10^3/uL RBC 4.93 (4.0-5.2) X10^6/uL Hgb 13.7 (12.0-16.0) g/dL Hct 41.2 (36-46) % MCV 83.6 (80-100) fL MCH 27.8 (26-34) PG MCHC 33.3 (30-36) % RDW 13.8 (11.6-14.8) % Plt Count 255 (150-400) X10^3/uL Neut % (Auto) 54.5 (50-75) % Lymph % (Auto) 24.7 L (25-40) % [place] % (Auto) 9.7 (3-14) % Eos % (Auto) 10.3 H (2-4) % Baso % (Auto) 0.8 (0-2) % Neut # (Auto) 3400 (8881-3873) /uL Lymph # (Auto) 1500 (4772-6858) /uL [place] # (Auto) 600 (0-900) /uL Eos # (Auto) 600 H (0-450) /uL Baso # (Auto) 100 (0-100) /uL PT 10.7 (9.4-12.5) SECONDS INR 0.9 (0.9-1.3) APTT 28 (25.1-36.5) SECONDS D-Dimer 686 H (<500) ng/ml Sodium 139 (137-145) mmol/L Potassium 4.2 (3.4-5.1) mmol/L Chloride 104 (98-107) mmol/L Carbon Dioxide 26 (22-32) mmol/L BUN 14 (7-17) mg/dL Creatinine 0.81 (0.52-1.04) mg/dL Estimated GFR > 60 (>60) mL/min BUN/Creatinine Ratio 17.3 (6-22) Glucose 128 H (80-110) mg/dL Calcium 9.5 (8.4-10.2) mg/dL Magnesium 1.9 (1.6-2.3) mg/dL Total Bilirubin 0.7 (0.2-1.3) mg/dL AST TNP ALT 16 (<35) IU/L Alkaline Phosphatase 77 (38-126) U/L Total Creatine Kinase 45 (30-135) U/L Troponin I < 0.012 (0.01-0.034) ng/mL Total Protein 7.2 (6.3-8.2) g/dL Albumin 4.0 (3.5-5.0) g/dL Globulin 3.2 (1.7-4.1) g/dL Albumin/Globulin Ratio 1.3 (1.0-2.8) Lipase 86 (23-300) U/L Imaging Data Chest x-ray: Radiologist's Impression: PROCEDURE: XR CHEST 1V INDICATIONS: chest pain TECHNIQUE: One view of the chest was acquired. COMPARISON: [facility], , XR CHEST 2V, 06/10/2023, 11:36. FINDINGS: Surgical changes and devices: None. Lungs and pleura: Lungs are clear. No pleural effusions or pneumothorax. Mediastinum: Mediastinal contours appear stable. Heart size is normal. Bones and chest wall: No suspicious bony lesions. Overlying soft tissues appear unremarkable. IMPRESSION: Stable radiographic evaluation of the chest without acute cardiopulmonary abnormalities or focal airspace disease. CT scan - chest: Radiologist's Impression: PROCEDURE: CT ANGIO CHEST PE PROTOCOL INDICATIONS: Chest pain, shortness of breath, tachycardia TECHNIQUE: After the administration of intravenous contrast, 2 mm thick sections acquired from the pulmonary apices to the posterior costophrenic angles. 3-dimensional maximum intensity projection (MIP) coronal and sagittal reformats were then acquired through the thorax. For radiation dose reduction, the following was used: automated exposure control, adjustment of mA and/or kV according to patient size. COMPARISON: None. FINDINGS: Image quality: Diagnostic. Pulmonary arteries: Pulmonary arteries are normal in size, and demonstrate no intraluminal filling defects to suggest central pulmonary embolism. Lower Neck: No enlarged lymph nodes. Thyroid: No thyroid nodules which require sonographic follow up, per consensus guidelines. Axillae: No enlarged lymph nodes. Chest Wall: Unremarkable. Bones: Unremarkable. Lungs and Pleura: No pneumothorax or pleural effusions. No evidence of pneumonia. 6 mm nodule within the right costophrenic angle laterally. 4 mm nodule within the right middle lobe. Heart: Heart size is normal. No pericardial effusion. Calcification of the coronary vasculature is present. Thoracic Vessels: No aortic aneurysm. Mediastinum and Fina: No enlarged lymph nodes. Esophagus: No wall thickening. No hiatal hernia. Upper Abdomen: Visualized upper abdomen solid organs and bowel loops appear normal. IMPRESSION: 1. No acute process. 2. Coronary artery disease. 3. No pulmonary embolus. 4. Right pulmonary nodules as above. Follow-up is recommended as below. ECG Data Attestation: I personally reviewed and interpreted this ECG as follows: Interpretation: Sinus rhythm Ventricular rate is 69 Normal axis Normal QRS Normal QTC No ST T wave changes MDM Narrative Medical decision making narrative: Labs are unremarkable. Age adjusted D-dimer is above cut off. CT scan of the chest shows no acute pathology. She does have 2 pulmonary nodules that were not mentioned on prior CT scans. The patient was informed of this and informed that she needs to follow-up with her primary doctor. No indication for antibiotics. No findings consistent with pneumonia. Low suspicion for ACS troponin is negative. There was no indication for admission to the hospital today. Patient was given return precautions and follow-up instructions. She expressed understanding and agreement. Discharge Plan Departure Patient Disposition: Home Clinical Impression: Right-sided chest pain, Pulmonary nodule, Chronic sinus complaints Instructions: DI for Atypical Chest Pain Activity Restrictions/Additional Instructions: There were incidental finding of a right-sided pulmonary nodule that you do need to have a nonemergent follow-up with your primary care doctor to discuss further evaluation of this. If you develop a rash over the next couple days you do need to return to the emergency department. You can continue with conservative treatment to include avoiding activities that make your symptoms worse and also using Tylenol/ibuprofen. Return to the emergency department for new symptoms. Prescriptions: No Action lisinopril 20 mg tablet 20 mg PO DAILY Prilosec 10 mg susp,delayed release for recon 10 mg PO DAILY albuterol sulfate 90 mcg/actuation HFA aerosol inhaler 2 puff inhalation Q6H PRN (Reason: shortness of breath or wheezing) Qty: 6.7 1RF benzonatate 100 mg capsule 100 mg PO BID PRN (Reason: cough) Qty: 20 0RF fluticasone propionate [Flonase Allergy Relief] 50 mcg/actuation spray,suspension 1 spray intranasal BID Rx Instructions: administer into each nostril cetirizine [Zyrtec] 10 mg tablet 10 mg PO DAILY PRN benzonatate 100 mg capsule 100 mg PO BID PRN (Reason: cough) Qty: 20 0RF Referrals: Kelly Best PA-C [Primary Care Provider] - Stand Alone Forms: Patient Portal/API
[2023-07-08 13:08] LABS: Troponin I < 0.012 ng/mL (0.01-0.034)
[2023-07-08] MEDS: KETOROLAC 30 MG/ML VIAL IV (13:18)
[2023-07-08 13:21] VITALS: BP 167/81; PULSE 69; RESP 20; O2SAT 98
[2023-07-08 13:40] LABS: D Dimer 686 ng/ml (<500)
--- NOTE | 2023-07-08 13:46 | DI.CT.S_ITS ---
PROCEDURE: CT ANGIO CHEST PE PROTOCOL INDICATIONS: Chest pain, shortness of breath, tachycardia TECHNIQUE: After the administration of intravenous contrast, 2 mm thick sections acquired from the pulmonary apices to the posterior costophrenic angles. 3-dimensional maximum intensity projection (MIP) coronal and sagittal reformats were then acquired through the thorax. For radiation dose reduction, the following was used: automated exposure control, adjustment of mA and/or kV according to patient size. COMPARISON: None. FINDINGS: Image quality: Diagnostic. Pulmonary arteries: Pulmonary arteries are normal in size, and demonstrate no intraluminal filling defects to suggest central pulmonary embolism. Lower Neck: No enlarged lymph nodes. Thyroid: No thyroid nodules which require sonographic follow up, per consensus guidelines. Axillae: No enlarged lymph nodes. Chest Wall: Unremarkable. Bones: Unremarkable. Lungs and Pleura: No pneumothorax or pleural effusions. No evidence of pneumonia. 6 mm nodule within the right costophrenic angle laterally. 4 mm nodule within the right middle lobe. Heart: Heart size is normal. No pericardial effusion. Calcification of the coronary vasculature is present. Thoracic Vessels: No aortic aneurysm. Mediastinum and Fina: No enlarged lymph nodes. Esophagus: No wall thickening. No hiatal hernia. Upper Abdomen: Visualized upper abdomen solid organs and bowel loops appear normal. IMPRESSION: 1. No acute process. 2. Coronary artery disease. 3. No pulmonary embolus. 4. Right pulmonary nodules as above. Follow-up is recommended as below. Fleischner Society criteria for SOLID lung nodule followup. Nodule size (mm)Low-risk patientHigh-risk patient<6 (single or multiple)No routine followup.Optional CT at 12 months. 6-8 (single or multiple)CT at 6-12 months, then optional CT at 18-24 mo.CT at 6-12 months, then CT at 18-24 months. >8 (single)CT, PET-CT, or biopsy at 3 months. Same as for low-risk pts. >8 (multiple)CT at 3-6 months, then optional CT at 18-24 mo.CT at 3-6 months, then CT at 18-24 months. Fleischner Society criteria for SUB-SOLID lung nodule followup. Solitary pure ground-glass nodules<6 mm (ground glass or part solid)No followup needed. 6 mm or larger (ground glass)CT at 6-12 months to confirm persistence, then CT every 2 years until 5 years.6 mm or larger (part solid)CT at 3-6 months to confirm persistence, then annual CT until 5 years if unchanged and solid component remains <6 mm. Multiple sub-solid nodules<6 mmCT at 3-6 months, then CT consider at 2 & 4 years for high risk patients. [address] at 3-6 months. Subsequent management based on most suspicious lesions. Recommendations do not apply to lung cancer screening, patients with immunosuppression, or patients with known primary cancer. Dictated by: Don De León M.D. on 07/08/2023 at 14:08 Approved by: Don De León M.D. on 07/08/2023 at 14:12
[2023-07-08 14:52] VITALS: BP 187/93; PULSE 71; RESP 21; O2SAT 98
[2023-07-09 15:08] LABS: Aspartate Aminotransferase 28 IU/L (14-36)
== END 2023-07-08 14:55 | disposition home or self-care (01) ==
PROVIDERS: Emergency Provider Emergency Medicine; PCP Physician Assistant
DX: R07.9 Chest pain, unspecified (principal); R91.1 Solitary pulmonary nodule; R00.0 Tachycardia, unspecified; R09.89 Other specified symptoms and signs involving the circulatory and respiratory systems
CPT/HCPCS: 36415; 71045; 71275; 80053; 82550; 83690; 83735; 84484; 85025; 85379; 85610; 85730; 93005; 96374; 99284; J1885

== ENCOUNTER → 2024-01-31 12:47 | Outpatient (CLI) | payer MEDICARE, SELFPAY ==
--- NOTE | 2024-01-31 12:48 | DI.CT.S_ITS ---
PROCEDURE: CT CHEST WO CON INDICATIONS: MULTIPLE NODULES TECHNIQUE: Noncontrast 5 mm thick sections acquired from the pulmonary apices to the posterior costophrenic angles. 1 mm lung window, 5 mm thick coronal and sagittal and 7 mm axial MIP reformats were then acquired. For radiation dose reduction, the following was used: automated exposure control, adjustment of mA and/or kV according to patient size. COMPARISON: [facility], CT, CT CHEST WO CON, 02/21/2020, 8:08. FINDINGS: Image quality: Diagnostic. Lower Neck: No enlarged lymph nodes. Thyroid: Normal CT appearance. Axillae: No enlarged lymph nodes. Chest Wall: No suspicious masses. Bones: No suspicious bone lesions. Degenerative changes in the spine. Lungs and Pleura: 0.4 cm nodule in the right middle lobe. The right costophrenic sulcus nodule is not well seen. Minor subpleural atelectatic changes. No new nodules, consolidations, ground-glass opacities, pleural effusions, or pleural plaquing. Heart: Heart size is normal. No pericardial effusion. Thoracic Vessels: There is mild enlargement of the ascending thoracic aorta at 4.3 cm in AP diameter. Mild enlargement of the pulmonary outflow tract without enlargement of the pulmonary arteries. Mediastinum and Fina: No enlarged lymph nodes. Esophagus: No wall thickening. No hiatal hernia. Upper Abdomen: Visualized upper abdomen solid organs and bowel loops appear normal. IMPRESSION: No change to right middle lobe lung nodule measuring 4 mm, benign given presence since 02/21/20. No new suspicious findings in the chest. Stable mild ascending aortic aneurysm. Dictated by: Cele Carvalho M.D. on 01/31/2024 at 18:53 Approved by: Cele Carvalho M.D. on 01/31/2024 at 19:00
== END ==
PROVIDERS: PCP Physician Assistant; Referring Provider Physician Assistant; Visit Provider Physician Assistant
DX: R91.8 Other nonspecific abnormal finding of lung field (principal); I71.21 Aneurysm of the ascending aorta, without rupture
CPT/HCPCS: 71250